=== PATIENT | female | born 1995 | race African-American/Black ===

== ENCOUNTER 2017-11-29 23:54 | Emergency (ER) | payer MEDICAID ==
--- NOTE | 2017-11-30 00:09 | EDPHY ---
H & P Stated Complaint: Tooth pain Time Seen by Provider: 11/30/17 00:09 HPI/ROS: HPI CHIEF COMPLAINT: Right upper dental pain. HISTORY OF PRESENT ILLNESS: This patient very pleasant 22-year-old female, she presents emergency room by private vehicle with right upper posterior molar dental pain and gumline pain. States this started earlier today having pain. No fever. She does wear retainer. She presents emergency room due to pain. Past Medical History: No significant medical history Past Surgical History: No significant surgical history Social History: Denies daily use drugs alcohol tobacco. Family History: Noncontributory ROS REVIEW OF SYSTEMS: A comprehensive 10 point review of systems is otherwise negative aside from elements mentioned in the history of present illness. Exam Constitutional triage nursing summary reviewed, vital signs reviewed, awake/ alert. Eyes normal conjunctivae and sclera, EOMI, PERRLA. HENT oropharynx; this shows some erythema and edema of the right upper gumline next to the molar and premolar. No significant abscess seen on exam. It is mildly tender palpation. This is exactly where her retainer inserts into. moist mucus membranes, no epistaxis, neck supple/ no meningismus, no raccoon eyes. No signs of Anderson's or peritonsillar abscess. Respiratory clear to auscultation bilaterally, normal breath sounds, no respiratory distress, no wheezing. Cardiovascular rate normal, regular rhythm, no murmur, no edema, distal pulses normal. Gastrointestinal soft, non-tender, no rebound, no guarding, normal bowel sounds, no distension, no pulsatile mass. Genitourinary no CVA tenderness. Musculoskeletal no midline vertebral tenderness, full range of motion, no calf swelling, no tenderness of extremities, no meningismus, good pulses, neurovascularly intact. Skin pink, warm, & dry, no rash, skin atraumatic. Neurologic awake, alert and oriented x 3, AAOx3, moves all 4 extremities equally, motor intact, sensory intact, CN II-XII intact, normal cerebellar, normal vision, normal speech. Psychiatric normal mood/affect. Heme/Lymph/Immune no lymphadenopathy. Differential Diagnosis: Includes but is not limited to in a particular order dental infection, gumline abscess, contact irritation from retainer. Infection of the roof of the mouth. Gingivitis, pulpitis, Anderson's. Medical Decision Making: Plan for this patient will placed on amoxicillin, recommend close follow-up with dentistry. Ibuprofen for pain control. Return precautions discussed with her mother at bedside. She can return to the ER if she has worsening swelling, pain or fever. Do not appreciate anything that can be lanced or opened up this time. Source: Patient - Personal History LMP (Females 10-55): 15-21 Days Ago Current Tetanus/Diphtheria Vaccine: No Current Tetanus Diphtheria and Acellular Pertussis (TDAP): No - Medical/Surgical History Hx Asthma: No Hx Chronic Respiratory Disease: No Hx Diabetes: No Hx Cardiac Disease: No Hx Renal Disease: No Hx Cirrhosis: No Hx Alcoholism: No Hx HIV/AIDS: No Hx Splenectomy or Spleen Trauma: No Other PMH: Denies - Social History Smoking Status: Never smoked Constitutional: Initial Vital Signs Temperature (C) 36.9 C 11/29/17 23:58 Heart Rate 118 H 11/29/17 23:58 Respiratory Rate 16 11/29/17 23:58 Blood Pressure 130/71 H 11/29/17 23:58 O2 Sat (%) 95 11/29/17 23:58 O2 Delivery Mode Room Air Allergies/Adverse Reactions: No Known Allergies Allergy (Unverified 11/30/17 00:01) Home Medications: Medication Instructions Recorded Amoxicillin Trihydrate 500 mg PO TID 7 Days cap 11/30/17 [Amoxicillin] Ibuprofen [Motrin (*)] 800 mg PO Q6-8PRN #10 tab 11/30/17 Departure - Departure Disposition: Home, Routine, Self-Care Clinical Impression: Pain, dental Condition: Good Instructions: Toothache (ED) Additional Instructions: 1. Recommend antibiotics as prescribed. 2. Anti-inflammatory pain medicine as prescribed. 3. Return emergency room if there is worsening pain questions or concerns. Referrals: Patient,NotPresent [Unknown] - As per Instructions [facility] [Outside] - As per Instructions [facility] [Outside] - As per Instructions Prescriptions: Amoxicillin Trihydrate [Amoxicillin] 500 mg PO TID 7 Days cap Ibuprofen [Motrin (*)] 800 mg PO Q6-8PRN #10 tab
[2017-11-30 00:32] VITALS: BP 109/73
== END 2017-11-30 00:32 | disposition home or self-care (01) ==
DX: K08.89 Other specified disorders of teeth and supporting structures (principal)

== ENCOUNTER 2017-12-21 04:37 | Emergency (ER) | payer MEDICAID ==
[2017-12-21 04:41] VITALS: BP 110/77
[2017-12-21] MEDS ORDERED: HYDROGEN PEROXIDE 236 ML BOTTLE TP ONE (04:45)
[2017-12-21] MEDS ORDERED: HYDROGEN PEROXIDE 473 ML BOTTLE TP ONE (04:54)
--- NOTE | 2017-12-21 06:24 | EDPHY ---
H & P Stated Complaint: "Bug in my R ear", "i grabbed a piece of it out think theres more in there" Time Seen by Provider: 12/21/17 06:14 HPI/ROS: HPI The patient presents with foreign body sensation of right ear which has been present for the last several hours. She awoke and heard a bug buzzing around her ear. She then felt that the bug went into her ear. She was able to remove a portion of the bug but then felt that the remainder of it was inside of her year. She does not have any changes in her hearing, ear pain currently.. REVIEW OF SYSTEMS Constitutional: No fever, no chills. Eyes: No discharge. ENT: No sore throat. Skin: No rashes. Neurological: No headache. PMHx: Healthy, recently seen for a tooth infection Soc Hx: Here with her mother PHYSICAL General Appearance: Alert, no distress Eyes: Pupils equal and round no pallor or injection ENT, Mouth: Right ear canal is unremarkable, no foreign body, tympanic membrane appears normal, Mucous membranes moist Respiratory: Breathing comfortably Neurological: A&O, moves all extremities Skin: Warm and dry, no rashes Musculoskeletal: Neck is supple non tender Extremities: symmetrical, full range of motion Psychiatric: Patient is oriented X 3, there is no agitation Source: Patient Exam Limitations: No limitations - Personal History LMP (Females 10-55): 1-7 Days Ago Current Tetanus Diphtheria and Acellular Pertussis (TDAP): Yes - Medical/Surgical History Hx Asthma: No Hx Chronic Respiratory Disease: No Hx Diabetes: No Hx Cardiac Disease: No Hx Renal Disease: No Hx Cirrhosis: No Hx Alcoholism: No Hx HIV/AIDS: No Hx Splenectomy or Spleen Trauma: No Other PMH: Denies - Social History Smoking Status: Never smoked Constitutional: Initial Vital Signs Temperature (C) 36.7 C 12/21/17 04:39 Heart Rate 87 12/21/17 04:39 Respiratory Rate 20 12/21/17 04:39 Blood Pressure 110/77 12/21/17 04:39 O2 Sat (%) 95 12/21/17 04:39 O2 Delivery Mode Room Air Allergies/Adverse Reactions: No Known Allergies Allergy (Unverified 12/21/17 04:38) Home Medications: Medication Instructions Recorded Amoxicillin Trihydrate 500 mg PO TID 7 Days cap 11/30/17 [Amoxicillin] Ibuprofen [Motrin (*)] 800 mg PO Q6-8PRN #10 tab 11/30/17 Medical Decision Making Differential Diagnosis: 22-year-old female with concern of foreign body in right ear canal. Ear was irrigated prior to my assessment and currently there is no sign of foreign body , TM appears intact and normal. Plan for discharge to home. Differential diagnosis includes ear foreign body, TM perforation, otitis media. - Data Points Medications Given: Discontinued Medications Hydrogen Peroxide (Hydrogen Peroxide) 1 mirian TP EDNOW ONE Stop: 12/21/17 04:55 Last Admin: 12/21/17 04:55 Dose: 1 dose Departure - Departure Instructions: Ear Foreign Body (ED) Referrals: NONE *PRIMARY CARE P,. [Primary Care Provider] - As per Instructions
== END 2017-12-21 06:23 | disposition home or self-care (01) ==
DX: H92.01 Otalgia, right ear (principal)

== ENCOUNTER 2018-04-17 13:26 | Inpatient (IN) | payer MEDICAID, OTHER ==
[2018-04-17] MEDS ORDERED: HALOPERIDOL LACT 5 MG/ML INJ IM ONE ×2 (13:56→14:36)
--- NOTE | 2018-04-17 13:56 | EDPHY ---
H & P Stated Complaint: Pt without sleep x 10 days, confused and flighty - Personal History Current Tetanus/Diphtheria Vaccine: Yes - Medical/Surgical History Hx Asthma: No Hx Chronic Respiratory Disease: No Hx Diabetes: No Hx Cardiac Disease: No Hx Renal Disease: No Hx Cirrhosis: No Hx Alcoholism: No Hx HIV/AIDS: No Hx Splenectomy or Spleen Trauma: No Other PMH: Denies - Social History Smoking Status: Never smoked <Crispin Barrios - Last Filed: 04/17/18 16:34> <Ken Serrato E - Last Filed: 04/18/18 06:34> <Naveen Leonard A - Last Filed: 04/18/18 09:06> <Naseem Wilkerson S - Last Filed: 04/18/18 18:29> <Ivonne Russell S - Last Filed: 04/18/18 19:40> Time Seen by Provider: 04/17/18 13:44 HPI/ROS: CHIEF COMPLAINT: "They're after me" HISTORY OF PRESENT ILLNESS: 22-year-old female arrives with her mother. Patient presents with an "Aftercare Plan" from "[facility]" in [place] (phone [phone]) where she was admitted and discharged a few days ago diagnosed with unspecified schizophrenia spectrum and other psychotic disorder. The patient has been acting erratically, is not endorsing suicidal or homicidal ideation per mother. Patient has not slept in 10 days per patient and mother . Patient states that people are following her and "hunting her". Denies suicidal or homicidal ideation . Denies hallucination. REVIEW OF SYSTEMS: 10 systems reviewed and negative with the exception of the elements mentioned in the history of present illness PAST MEDICAL & SURGICAL HISTORY: Recent diagnosis of unspecified schizophrenia spectrum and other psychotic disorder SOCIAL HISTORY: Denies alcohol or drug use PHYSICAL EXAM (Prior to examination, patient consented to physical exam, hands were washed and my usual and customary physical exam procedures followed) 1) GENERAL: Well-developed, well-nourished, hyper alert, appears to be responding to internal stimuli. 2) HEAD: Normocephalic, atraumatic 3) HEENT: Pupils equal, round, reactive to light bilaterally. Sclera anicteric. 4) NECK: Full range of motion, no meningeal signs. 5) LUNGS: Clear auscultation bilaterally, no wheezes, no rhonchi, no retractions. 6) HEART: Regular rate and rhythm, no murmur, no heave, no gallop. 7) ABDOMEN: No guarding, no rebound, no focal tenderness, negative McBurney's, negative Montoya's, negative Rovsing's, negative peritoneal sign, 8) MUSCULOSKELETAL: Moving all extremities, no focal areas of tenderness, no obvious trauma. No peripheral edema or discoloration. 9) BACK: No CVA tenderness, no midline vertebral tenderness, no fluctuance, no step-off, no obvious trauma, no visual or palpable abnormality. 10) SKIN: No rash, no petechiae. 11) Psychiatric: Patient is oriented X 3, initially calm, appears to be responding to internal stimuli, hyper alert, keeps looking around the room as if she is visualizing someone or something DIFFERENTIAL DIAGNOSIS: In no particular order include but limited to psychosis , beatriz, suicidal ideation, homicidal ideation (Crispin Barrios) Constitutional: Initial Vital Signs Temperature (C) 36.6 C 04/17/18 13:37 Heart Rate 118 H 04/17/18 13:37 Respiratory Rate 22 H 04/17/18 13:37 Blood Pressure 138/81 H 04/17/18 13:37 O2 Sat (%) 95 04/17/18 13:37 O2 Delivery Mode Room Air Allergies/Adverse Reactions: No Known Allergies Allergy (Verified 04/18/18 17:55) Home Medications: Medication Instructions Recorded NK [No Known Home Meds] 04/18/18 Medical Decision Making <Crispin Barrios - Last Filed: 04/17/18 16:34> <Ken Serrato E - Last Filed: 04/18/18 06:34> <Naveen Leonard A - Last Filed: 04/18/18 09:06> <Naseem Wilkerson S - Last Filed: 04/18/18 18:29> <Ivonne Russell S - Last Filed: 04/18/18 19:40> ED Course/Re-evaluation: 1:50 p.m.: Patient evaluated by myself, she appears to be responding to internal stimuli, paranoid. Patient calm and cooperative at this time agrees to oral medication. Patient was placed on a medical incapacity hold by Dr Néstor Retana as she was threatening to walk out of the waiting room. She agrees at this time to laboratory studies and to change into a gown. 1:55 p.m.: Patient agitated, taking off her clothing, being uncooperative, yelling. Will no longer be able to administer oral medication, will administer intramuscular Haldol. 4:30 p.m.: Serial exams have been performed by myself. She is more calm. 5:00 p.m.: Care the patient turned over to Dr. Naseem Wilkerson at this time awaiting mental health evaluation (Crispin Barrios) I assumed care of this patient at 2:00 p.m.. She presents with acute psychosis. Mental health evaluation pending. 4 p.m.-patient has been seen by mental health and felt appropriate for inpatient treatment of psychosis. EMTALA signed. Accepted to [address] [place] [address]. 6pm: ED RN informed me about pt's ongoing tachycardia. VS reviewed, HR 100-120 throughout her ED stay. Pt calm and cooperative. CV: Regular tachycardia. The patient had an EKG previously today and revealed sinus tachycardia. I reviewed the patient's labs. I will add a TSH to her labs. (Ivonne Russell) Other Provider: 6:30 p.m. care transferred to Dr. Naveen Leonard. Patient is awaiting psychiatric placement. (Ken Serrato) 0630: I assumed care of this patient at shift change from Dr. Serrato. 0845: The patient is tachycardic and normotensive. EKG ordered. 0857: The 12 lead EKG was interpreted by myself as sinus tachycardia with a rate of 118. See hard copy and/or "tracemaster" electronic copy for interpretation. Her tachycardia is most likely secondary to the Haldol. She is eating and drinking well and does not appear systemically ill. (Naveen Leonard) Care assumed from Dr. Retana for this psychotic patient with recent diagnosis of schizophrenia, plan for psychiatric evaluation. PHYSICIAN DOCUMENTATION: The patient was evaluated and managed by the Physician Director Database and myself. I have reviewed the chart and agree with the findings and plan of care as documented. In addition, I examined the patient myself at 1510. History confirmed as the patient currently does not have any medical complaints. Physical findings as follows: Ambulatory, not ataxic. Keeps trying to wander into the hallway but is redirectable. 2300: Signed out to Dr. Serrato with plan for psychiatric admission. I am the secondary supervising physician. (Naseem Wilkerson) - Data Points Laboratory Results: Laboratory Results 04/17/18 15:50 04/17/18 15:50 04/18/18 04/17/18 09:00 15:50 TSH 1.440 uIU/mL uIU/mL (0.465-4.680) Urine Opiates Screen NEGATIVE (NEGATIVE) Urine Barbiturates NEGATIVE (NEGATIVE) Ur Phencyclidine Scrn NEGATIVE (NEGATIVE) Ur Amphetamine Screen NEGATIVE (NEGATIVE) U Benzodiazepines Scrn NEGATIVE (NEGATIVE) Urine Cocaine Screen NEGATIVE (NEGATIVE) U Marijuana (THC) Screen NEGATIVE (NEGATIVE) Medications Given: Discontinued Medications Haloperidol Lactate (Haldol Injection) 5 mg IM EDNOW ONE Stop: 04/17/18 13:57 Last Admin: 04/17/18 14:05 Dose: 5 mg Haloperidol Lactate (Haldol Injection) 5 mg IM EDNOW ONE Stop: 04/17/18 14:37 Last Admin: 04/17/18 14:43 Dose: 5 mg Lorazepam (Ativan Injection) 2 mg IM EDNOW ONE Stop: 04/17/18 14:37 Last Admin: 04/17/18 14:44 Dose: 2 mg Departure <Crispin Barrios - Last Filed: 04/17/18 16:34> <Ken Serrato E - Last Filed: 04/18/18 06:34> <Naveen Leonard - Last Filed: 04/18/18 09:06> <Naseem Wilkerson S - Last Filed: 04/18/18 18:29> <Ivonne Russell S - Last Filed: 04/18/18 19:40> - Departure Disposition: [facility] Clinical Impression: Acute psychosis, Beatriz Condition: Good Report Scribed for: Naveen Leonard Report Scribed by: Lindsey Chand Date of Report: 04/18/18 Time of Report: 09:07 <Naveen Leonard - Last Filed: 04/18/18 09:06>
[2018-04-17] MEDS ORDERED: LORazepam 2 MG/ML INJ IM ONE (14:36)
[2018-04-17] MEDS ORDERED: LORazepam 2 MG/ML INJ ONE (14:37)
[2018-04-17] MEDS ORDERED: HALOPERIDOL LACT 5 MG/ML INJ ONE (14:37)
[2018-04-17 16:12] LABS: PLATELET COUNT 224 10^3/uL (150-400)
--- NOTE | 2018-04-18 09:04 | CPEKG ---
Test Reason : OPEN Blood Pressure : / mmHG Vent. Rate : 118 BPM Atrial Rate : 116 BPM P-R Int : 141 ms QRS Dur : 064 ms QT Int : 302 ms P-R-T Axes : 084 080 061 degrees QTc Int : 424 ms Sinus tachycardia Confirmed by Naveen Leonard ([id number]) on 04/18/2018 9:04:25 AM Referred By: Confirmed By:Naveen Leonard
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
--- NOTE | 2018-04-18 17:55 | ASMTTCLDSP ---
TLC Discharge Disposition Disposition: Answers: Admit Disposition Notes: Notes: In consultation with [facility] ED physician, Naveen Leonard MD and on-call psychiatrist, Darvin Shah MD, both concurred that pt appears to meet 27-65 criteria requiring psychiatric hospitalization as pt appears to be a gravely disabled due to a mental illness condition Was patient given the Answers: Yes Inpatient Behavioral Health Prohibited Belongings List while in the ED? Type of Hold: Answers: M1/72-hour Hold Hold initiated by: Answers: ED Physician Date Signed: 04/18/2018 05:55 PM Electronically Signed By:Erasmo Lawson
[2018-04-18] MEDS ORDERED: MAG HYDROX/AL HYDROX/SIMETH 30 ML UDCUP PO PRN (20:39)
[2018-04-18] MEDS ORDERED: ACETAMINOPHEN 325 MG TAB PO PRN (20:39)
[2018-04-18] MEDS ORDERED: NICOTINE POLACRILEX 2 MG GUM B PRN (20:39)
[2018-04-18] MEDS ORDERED: LORazepam 0.5 MG TAB PO PRN (20:39)
[2018-04-18] MEDS ORDERED: OLANZapine DISINTEGR 10 MG TAB PO PRN (20:39)
[2018-04-18] MEDS ORDERED: MAGNESIUM HYDROXIDE 30 ML UDCUP PO PRN (20:39)
[2018-04-18] MEDS ORDERED: MELATONIN 3 MG TAB PO PRN (20:40)
[2018-04-18] MEDS: OLANZapine DISINTEGR 5 MG TAB PO SCH (21:07)
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
--- NOTE | 2018-04-19 09:27 | PDMN ---
Medical Necessity Medical necessity: [id number] Schizophrenia Spectrum Disorders, Adult: Inpatient Care, 22 yo w/ unspecified schizophrenia spectrum and other psychotic d/o, gravely disabled, M1 hold
--- NOTE | 2018-04-19 14:45 | ASMTCMCOM ---
CM Note CM Note Notes: Pt. and CC completed MTP and placed in chart. Pt. stated she might have legal issues, but is unsure. Pt. stated she last used alcohol "been a minute" adding she drinks "not that often". Pt. stated she smoked THC "while ago" adding a few weeks ago. Pt. denied SI, HI, AVH and paranoia. Pt. presents as semi alert, disorganized, poor eye contact, and passive when communicating. Staff report pt. sleeping 6 hours and being medication compliant. Date Signed: 04/19/2018 02:45 PM Electronically Signed By:Keyanna Hatfield
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
--- NOTE | 2018-04-19 18:22 | PDGENHP ---
History and Physical - Chief Complaint medical evaluation - History of Present Illness Admitted to inpatient psychiatry for evaluation of psychosis. Denies any recent fever, vomiting, diarrhea, headache, URI symptoms. Currently denies STEPHENS/ cough/congestion/sore throat/abd pain/n/v/d. LMP last week, says a normal cycle for her. Denies OTC use. Denies using control currently. Denies having a local PCP. History Information - Allergies/Home Medication List Allergies/Adverse Reactions: No Known Allergies Allergy (Verified 04/18/18 17:55) Home Medications: NK [No Known Home Meds] 04/18/18 [Last Taken Unknown] I have personally reviewed and updated: medical history, social history, surgical history - Past Medical History Additional medical history: Denies history of DM/HTN/asthma. - Surgical History Additional surgical history: Denies previous surgeries - Social History Smoking Status: Never smoked Alcohol Use: Occasionally Drug Use: Marijuana Review of Systems Review of Systems: see HPI Physical Exam Physical Exam: Temp Pulse Resp BP Pulse Ox 97.2 F 115 H 16 134/70 H 97 04/19/18 06:00 04/19/18 06:00 04/19/18 06:00 04/19/18 06:00 04/19/18 06:00 Constitutional: appears nourished, not in pain Eyes: PERRL, anicteric sclera Ears, Nose, Mouth, Throat: moist mucous membranes, hearing normal Cardiovascular: regular rate and rhythym, no murmur, rub, or gallop Respiratory: no respiratory distress, no rales or rhonchi, clear to auscultation , other (she is breathing noisily, but sounds in upper airway/not in lung matias ) Gastrointestinal: normoactive bowel sounds, soft, non-tender abdomen Skin: warm Musculoskeletal: other (JUNG, nl gait) Psychiatric: anxious, agitated Lymph, Heme, Immunologic: no cervical LAD Lab Data & Imaging Review 04/17/18 15:50 04/17/18 15:50 WBC 11.08 10^3/uL (3.80-9.50) H 04/17/18 15:50 RBC 4.75 10^6/uL (4.18-5.33) 04/17/18 15:50 Hgb 12.9 g/dL (12.6-16.3) 04/17/18 15:50 Hct 38.8 % (38.0-47.0) 04/17/18 15:50 MCV 81.7 fL (81.5-99.8) 04/17/18 15:50 MCH 27.2 pg (27.9-34.1) L 04/17/18 15:50 MCHC 33.2 g/dL (32.4-36.7) 04/17/18 15:50 RDW 13.2 % (11.5-15.2) 04/17/18 15:50 Plt Count 224 10^3/uL (150-400) 04/17/18 15:50 MPV 11.3 fL (8.7-11.7) 04/17/18 15:50 Neut % (Auto) 77.7 % (39.3-74.2) H 04/17/18 15:50 Lymph % (Auto) 10.6 % (15.0-45.0) L 04/17/18 15:50 King % (Auto) 10.5 % (4.5-13.0) 04/17/18 15:50 Eos % (Auto) 0.3 % (0.6-7.6) L 04/17/18 15:50 Baso % (Auto) 0.4 % (0.3-1.7) 04/17/18 15:50 Nucleat RBC Rel Count 0.0 % (0.0-0.2) 04/17/18 15:50 Absolute Neuts (auto) 8.63 10^3/uL (1.70-6.50) H 04/17/18 15:50 Absolute Lymphs (auto) 1.17 10^3/uL (1.00-3.00) 04/17/18 15:50 Absolute Monos (auto) 1.16 10^3/uL (0.30-0.80) H 04/17/18 15:50 Absolute Eos (auto) 0.03 10^3/uL (0.03-0.40) 04/17/18 15:50 Absolute Basos (auto) 0.04 10^3/uL (0.02-0.10) 04/17/18 15:50 Absolute Nucleated RBC 0.00 10^3/uL (0-0.01) 04/17/18 15:50 Immature Gran % 0.5 % (0.0-1.1) 04/17/18 15:50 Immature Gran # 0.05 10^3/uL (0.00-0.10) 04/17/18 15:50 Sodium 137 mEq/L (135-145) 04/17/18 15:50 Potassium 3.5 mEq/L (3.3-5.0) 04/17/18 15:50 Chloride 105 mEq/L (97-110) 04/17/18 15:50 Carbon Dioxide 20 mEq/l (22-31) L 04/17/18 15:50 Anion Gap 12 mEq/L (6-14) 04/17/18 15:50 BUN 7 mg/dL (7-23) 04/17/18 15:50 Creatinine 0.7 mg/dL (0.6-1.0) 04/17/18 15:50 Estimated GFR > 60 04/17/18 15:50 Glucose 128 mg/dL (70-100) H 04/17/18 15:50 Calcium 9.6 mg/dL (8.5-10.4) 04/17/18 15:50 TSH 1.440 uIU/mL (0.465-4.680) 04/17/18 15:50 Beta HCG, Qual NEGATIVE 04/17/18 15:50 Salicylates < 1.0 mg/dL (2.0-20.0) L 04/17/18 15:50 Urine Opiates Screen NEGATIVE (NEGATIVE) 04/18/18 09:00 Acetaminophen < 10 mcg/mL (10-30) L 04/17/18 15:50 Urine Barbiturates NEGATIVE (NEGATIVE) 04/18/18 09:00 Ur Phencyclidine Scrn NEGATIVE (NEGATIVE) 04/18/18 09:00 Ur Amphetamine Screen NEGATIVE (NEGATIVE) 04/18/18 09:00 U Benzodiazepines Scrn NEGATIVE (NEGATIVE) 04/18/18 09:00 Urine Cocaine Screen NEGATIVE (NEGATIVE) 04/18/18 09:00 U Marijuana (THC) Screen NEGATIVE (NEGATIVE) 04/18/18 09:00 Ethyl Alcohol < 10 mg/dL (0-10) 04/17/18 15:50 Assessment & Plan Assessment: Acute psychosis (Acute) Gwendolyn (Acute) -per behavioral health team Thank you for asking the hospital service to participate in her care. Please notify the hospital service if medical concerns arise during hospitalization.
[2018-04-19] MEDS: OLANZapine DISINTEGR 5 MG TAB PO SCH (21:19)
--- NOTE | 2018-04-20 08:32 | SOAPPROG ---
SOAP Progress Note Assessment/Plan: Assessment: Bipolar I Disorder, Severe, With Mood Congruent Psychotic Features. No improvement noted. (see subjective/objective note). Patient is not safe to discharge at this time as patient continues to exhibit signs of gwendolyn and psychosis, and express gwendolyn symptoms. Patient requires continued inpatient care because of current acute psychosis and gwendolyn, and requires inpatient level of care to stabilize in order to no longer be gravely disabled due to mental illness. Patient could benefit from continued inpatient hospitalization for crisis stabilization, safety, and medication evaluation. Plan: 1. Psychotropic medications: Patient refuses medications. 2. Review with patient informed consent and recommendations for psychotropic medication treatment listed below 3. Labs: no additional labs at this time. 4. Therapy: continue milieu and group therapy 5. Further investigation including gathering information from patients relatives and review of past case records to inform treatment plan. 6. Safety/Wellness plan and follow-up outpatient appointments to be established prior to discharge. Next steps are for patient to meet with children's zoo caretaker to plan a safe discharge plan and establish outpatient services for ongoing treatment. 7. Confer with inpatient treatment team regarding treatment plan. 8. Psychosocial stressors addressed through case management. 9. Legal status: M1; consider STC due to grave disability 10. Consider discharge next week if patient is in stable condition, safe, and has a safe discharge plan. PSYCHOTROPIC MEDICATION TREATMENT INFORMED CONSENT and RECOMMENDATIONS: Review nature of condition, diagnosis, and prognosis. Review nature and purpose of psychotropic medication treatment. Review type of psychotropic medications being ordered. Review risk and benefits of psychotropic medication treatment. Review probable length of time patient will need to take medications. Review risk and benefits of not undergoing psychotropic medication treatment. Review alternative treatments to psychotropic medications. Review psychotropic medications contraindications, drug-drug interactions, side effects, and importance of reporting any side effects to a psychiatric provider or nurse during inpatient hospitalization, and upon discharge to patients psychiatric outpatient provider, primary care provider, or other health care transitions nurse. Review importance of asking a nurse, psychiatric provider, or primary care provider any questions or problems concerning the psychotropic medications. Verify patient understands the information that has been provided, and understands, accepts, and agrees to psychotropic medications. Review patients safety plan and importance of patient to report to staff while hospitalized if patient is ever a danger to self/others, or unable to care for self, and upon discharge, the importance for patient to contact [facility] or [facility], or go to the nearest emergency room, if patient is ever a danger to self/others, or unable to care for self. Recommend that upon discharge patient establish medication management treatment with a psychiatric provider, establishes routine therapy appointments, and follow-up with primary care provider. Verify patient understands and agrees to these recommendations. 04/20/18 08:32 Subjective: Following up with patient for evaluation of psychosis and safety. Regarding why patient is hospitalized patient reports, "I am here because...I am here because........" Patient expresses the following psychiatric symptoms: distracted, unable to focus on one thing. Patient reports not taking medications as prescribed, and states, "I don't need them." Patient does not report undesirable side effects from the medications, and agrees to continue current medications. Patient describes getting no sleep last night, and states she feels "just fine." Objective: Vital Signs Temp Pulse Resp BP Pulse Ox 36.4 C 105 H 16 132/63 H 97 04/20/18 06:00 04/20/18 06:00 04/20/18 06:00 04/20/18 06:00 04/20/18 06:00 NURSING REPORT: Consulted with nursing for update on patients progress in treatment. Nurses report patient is not engaged in treatment, is not attending groups, slept 0 hours, expresses the following psychiatric symptoms: distracted , unable to focus; exhibits the following psychiatric symptoms: hyperactive, thought blocking, attending to internal stimuli, pacing halls; is eating all meals with prompting and direction from staff, is not agreeable to medications. MD REPORT FROM WEEKEND: admitted due to not sleeping, paranoid delusions, attempting to jump out of a moving car. MSE: The patient is a well-nourished female looking stated chronological age. Attire is appropriate and dress is hospital garb. Grooming status is appropriate. Ambulation is independent. Gait is normal and coordinated. Posture is normal and relaxed. Eye contact is inappropriate and staring. Motor activity is appropriate with purposeful, organized, coordinated movements ; with no involuntary movements. Attitude is uncooperative. Patient distracted and does not relate well to this interviewer. Language production is unspontaneous. Rate is severely hesitant. Latency of response is severely prolonged with sad tone, and low volume, and amount is monosyllabic to sparse. Articulation is clear. Patient reports mood as okay with incongruent and flat, constricted affect. Patients thought process is non-linear and illogical, disorganized, blocked. Patient does not report suicidal/homicidal thoughts, ideas, or plans. Patient denies auditory hallucinations, denies visual hallucinations. Patient denies delusions. Patient appears to be attending to internal stimuli during interview. Patients attention and concentration are poor. Patient is oriented to person, place. Patients insight and judgement are poor. - Time Spent With Patient Time Spent With Patient: 15 minutes, met with patient individually. - Pending Discharge Pending Discharge Within 24 Hours: No Pending Discharge Within 48 Hours: No ICD10 Worksheet Patient Problems: Problems Problem Status Onset Acute psychosis Acute Gwendolyn Acute
[2018-04-20] MEDS: OLANZapine DISINTEGR 5 MG TAB PO SCH (23:00)
--- NOTE | 2018-04-21 06:39 | SOAPPROG ---
SOAP Progress Note Assessment/Plan: Assessment: Bipolar I Disorder, Severe, With Mood Congruent Psychotic Features. No improvement noted. (see subjective/objective note). Patient is not safe to discharge at this time as patient continues to exhibit signs of gwendolyn and psychosis, and express gwendolyn and psychosis symptoms. Patient requires continued inpatient care because of current acute psychosis and gwendolyn, and requires inpatient level of care to stabilize in order to no longer be gravely disabled due to mental illness. Patient could benefit from continued inpatient hospitalization for crisis stabilization, safety, and medication evaluation. Plan: 1. Psychotropic medications: Patient refuses medications. 2. Review with patient informed consent and recommendations for psychotropic medication treatment listed below 3. Labs: no additional labs at this time. 4. Therapy: continue milieu and group therapy 5. Further investigation including gathering information from patients relatives and review of past case records to inform treatment plan. 6. Safety/Wellness plan and follow-up outpatient appointments to be established prior to discharge. Next steps are for patient to meet with acute care physical therapist to plan a safe discharge plan and establish outpatient services for ongoing treatment. 7. Confer with inpatient treatment team regarding treatment plan. 8. Psychosocial stressors addressed through case management. 9. Legal status: [facility] due to grave disability 10. Consider discharge next week if patient is in stable condition, safe, and has a safe discharge plan. PSYCHOTROPIC MEDICATION TREATMENT INFORMED CONSENT and RECOMMENDATIONS: Review nature of condition, diagnosis, and prognosis. Review nature and purpose of psychotropic medication treatment. Review type of psychotropic medications being ordered. Review risk and benefits of psychotropic medication treatment. Review probable length of time patient will need to take medications. Review risk and benefits of not undergoing psychotropic medication treatment. Review alternative treatments to psychotropic medications. Review psychotropic medications contraindications, drug-drug interactions, side effects, and importance of reporting any side effects to a psychiatric provider or nurse during inpatient hospitalization, and upon discharge to patients psychiatric outpatient provider, primary care provider, or other health career development director. Review importance of asking a nurse, psychiatric provider, or primary care provider any questions or problems concerning the psychotropic medications. Verify patient understands the information that has been provided, and understands, accepts, and agrees to psychotropic medications. Review patients safety plan and importance of patient to report to staff while hospitalized if patient is ever a danger to self/others, or unable to care for self, and upon discharge, the importance for patient to contact [facility] or [facility], or go to the nearest emergency room, if patient is ever a danger to self/others, or unable to care for self. Recommend that upon discharge patient establish medication management treatment with a psychiatric provider, establishes routine therapy appointments, and follow-up with primary care provider. Verify patient understands and agrees to these recommendations. 04/21/18 06:42 Subjective: Following up with patient for evaluation of psychosis and safety. Regarding why patient is hospitalized patient reports, "Umm, 'cause....I am here because..." Patient expresses the following psychiatric symptoms: distracted, "unable to think of the right words to say." Patient reports not taking medications as prescribed, and states, "I am fine, I do not need them." Educate patient on importance of taking medications as prescribed and patient continues to refuse. Patient describes getting no sleep last night, and reports feeling rested this morning. Patient reports, "I was up and down all night, could not go to sleep." Objective: Vital Signs Temp Pulse Resp BP Pulse Ox 36.4 C 105 H 16 132/63 H 97 04/20/18 06:00 04/20/18 06:00 04/20/18 06:00 04/20/18 06:00 04/20/18 06:00 NURSING REPORT: Consulted with nursing for update on patients progress in treatment. Nurses report patient is not engaged in treatment, is not attending groups, slept 0 hours, was up all night pacing the halls; expresses the following psychiatric symptoms: distracted, unable to focus; exhibits the following psychiatric symptoms: distractible, hyperactive, thought blocking, attending to internal stimuli; is eating all meals with prompting and direction from staff, is not agreeable to medications, and RN reports patient refused all KACIE and PRN medications. MSE: The patient is a well-nourished female looking stated chronological age. Attire is appropriate and dress is hospital garb. Grooming status is appropriate. Ambulation is independent. Gait is normal and coordinated. Posture is normal and relaxed. Eye contact is inappropriate and staring; blank stare. Motor activity is appropriate with purposeful, organized, coordinated movements; with no involuntary movements. Attitude is uncooperative. Patient distracted and does not relate well to this interviewer. Language production is unspontaneous. Rate is severely hesitant. Latency of response is severely prolonged with sad tone, and low volume, and amount is monosyllabic to sparse. Articulation is clear. Patient unable to complete a full sentence. Patient reports mood as okay with incongruent and flat, constricted affect. Patients thought process is non-linear and illogical, disorganized, blocked. Patient does not report suicidal/homicidal thoughts, ideas, or plans. Patient denies auditory hallucinations, denies visual hallucinations. Patient denies delusions. Patient appears to be attending to internal stimuli during interview. Patients attention and concentration are poor. Patient is oriented to person, place. Patients insight and judgement are poor. - Time Spent With Patient Time Spent With Patient: 15 minutes, met with patient individually. - Pending Discharge Pending Discharge Within 24 Hours: No Pending Discharge Within 48 Hours: No ICD10 Worksheet Patient Problems: Problems Problem Status Onset Acute psychosis Acute Bipolar I disorder with mood-congruent psychotic features Acute Gwendolyn Acute
[2018-04-21] MEDS ORDERED: OLANZapine 5 MG TAB PO PRN (11:26)
--- NOTE | 2018-04-21 15:11 | ASMTCMCOM ---
CM Note CM Note Notes: MOC has been restricted from entering the unit or calling the unit, due to fostering pt's delusional beliefs. spoke about possibly seeking COM for pt. Pt. refused HS medications and slept 1 hour last night. Staff report pt. presenting as disorganized and psychotic. Date Signed: 04/21/2018 03:10 PM Electronically Signed By:Keyanna Hatfield
[2018-04-21] MEDS: OLANZapine DISINTEGR 5 MG TAB PO SCH (23:02)
--- NOTE | 2018-04-22 07:42 | SOAPPROG ---
SOAP Progress Note Assessment/Plan: Assessment: Bipolar I Disorder, Severe, With Mood Congruent Psychotic Features. No improvement noted. (see subjective/objective note). Patient is not safe to discharge at this time as patient continues to exhibit signs of gwendolyn and psychosis, and express gwendolyn and psychosis symptoms. Patient requires continued inpatient care because of current acute psychosis and gwendolyn, and requires inpatient level of care to stabilize in order to no longer be gravely disabled due to mental illness. Patient could benefit from continued inpatient hospitalization for crisis stabilization, safety, and medication evaluation. Plan: 1. Psychotropic medications: Patient refuses medications. 2. Review with patient informed consent and recommendations for psychotropic medication treatment listed below 3. Labs: no additional labs at this time. 4. Therapy: continue milieu and group therapy 5. Further investigation including gathering information from patients relatives and review of past case records to inform treatment plan. 6. Safety/Wellness plan and follow-up outpatient appointments to be established prior to discharge. Next steps are for patient to meet with patient care specialist to plan a safe discharge plan and establish outpatient services for ongoing treatment. 7. Confer with inpatient treatment team regarding treatment plan. 8. Psychosocial stressors addressed through case management. 9. Legal status: [facility] due to grave disability 10. Consider discharge next week if patient is in stable condition, safe, and has a safe discharge plan. 11. Court-ordered medications. PSYCHOTROPIC MEDICATION TREATMENT INFORMED CONSENT and RECOMMENDATIONS: Review nature of condition, diagnosis, and prognosis. Review nature and purpose of psychotropic medication treatment. Review type of psychotropic medications being ordered. Review risk and benefits of psychotropic medication treatment. Review probable length of time patient will need to take medications. Review risk and benefits of not undergoing psychotropic medication treatment. Review alternative treatments to psychotropic medications. Review psychotropic medications contraindications, drug-drug interactions, side effects, and importance of reporting any side effects to a psychiatric provider or nurse during inpatient hospitalization, and upon discharge to patients psychiatric outpatient provider, primary care provider, or other health care technician. Review importance of asking a nurse, psychiatric provider, or primary care provider any questions or problems concerning the psychotropic medications. Verify patient understands the information that has been provided, and understands, accepts, and agrees to psychotropic medications. Review patients safety plan and importance of patient to report to staff while hospitalized if patient is ever a danger to self/others, or unable to care for self, and upon discharge, the importance for patient to contact [facility] or 911, or go to the nearest emergency room, if patient is ever a danger to self/others, or unable to care for self. Recommend that upon discharge patient establish medication management treatment with a psychiatric provider, establishes routine therapy appointments, and follow-up with primary care provider. Verify patient understands and agrees to these recommendations. 04/22/18 07:43 Subjective: Following up with patient for evaluation of psychosis and safety. Regarding why patient is hospitalized patient reports, "Umm...." Patient expresses the following psychiatric symptoms: "not sure." Patient reports not taking medications as prescribed, and states, "No, I do not need them." Patient refuses medications. Patient describes getting "little to no sleep last night" , and reports feeling rested this morning. "Was having a hard time sleeping again last night, a lot of tossing and turning." Objective: Vital Signs Temp Pulse Resp BP Pulse Ox 36.9 C 107 H 16 135/70 H 97 04/21/18 06:00 04/21/18 06:00 04/21/18 06:00 04/21/18 06:00 04/21/18 06:00 NURSING REPORT: Consulted with nursing for update on patients progress in treatment. Nurses report patient is not engaged in treatment, is not attending groups, slept 2 hours, was up most of the night pacing the halls; expresses the following psychiatric symptoms: distracted, unable to focus; exhibits the following psychiatric symptoms: distractible, hyperactive, thought blocking, attending to internal stimuli; is eating all meals with prompting and direction from staff, is not agreeable to medications, and RN reports patient refused all KACIE and PRN medications. TREATMENT PLANNING: treatment team consensus yesterday during treatment team meeting was that patients mother was interfering with and having a negative impact on patients treatment. Patients mother requested to this COMMERCIAL TELLER yesterday during phone call that the patient be treated with alkaline water from [employer] and walnuts because walnuts look like the brain, it is the brain food connection. You should go back to school and learn about that. After she has water and walnuts for 2-3 weeks she will be better without any pharmaceutical medications. MD to write letter for court-ordered medications as patient continues to refuse medications. MSE: The patient is a well-nourished female looking stated chronological age. Attire is appropriate and dress is hospital garb. Grooming status is appropriate. Ambulation is independent. Gait is normal and coordinated. Posture is normal and relaxed. Eye contact is inappropriate and staring; blank stare. Motor activity is appropriate with purposeful, organized, coordinated movements; with no involuntary movements. Attitude is uncooperative. Patient distracted and does not relate well to this interviewer. Language production is unspontaneous. Rate is severely hesitant. Latency of response is severely prolonged with sad tone, and low volume, and amount is monosyllabic to sparse. Articulation is clear. Patient reports mood as okay with incongruent and flat, constricted affect. Patients thought process is non-linear and illogical, disorganized, blocked. Patient does not report suicidal/homicidal thoughts, ideas, or plans. Patient denies auditory hallucinations, denies visual hallucinations. Patient denies delusions. Patient appears to be attending to internal stimuli during interview. Patients attention and concentration are poor. Patient is oriented to person, place. Patients insight and judgement are poor. - Time Spent With Patient Time Spent With Patient: 15 minutes, met with patient individually. - Pending Discharge Pending Discharge Within 24 Hours: No Pending Discharge Within 48 Hours: No ICD10 Worksheet Patient Problems: Problems Problem Status Onset Acute psychosis Acute Gwendolyn Acute Bipolar I disorder with mood-congruent psychotic features Chronic
[2018-04-22] MEDS: OLANZapine DISINTEGR 5 MG TAB PO SCH (21:30)
--- NOTE | 2018-04-23 07:57 | SOAPPROG ---
SOAP Progress Note Assessment/Plan: Assessment: Bipolar I Disorder, Severe, With Mood Congruent Psychotic Features. No improvement noted. (see subjective/objective note). Patient is not safe to discharge at this time as patient continues to exhibit signs of gwendolyn and psychosis, and express gwendolyn and psychosis symptoms. Patient requires continued inpatient care because of current acute psychosis and gwendolyn, and requires inpatient level of care to stabilize in order to no longer be gravely disabled due to mental illness. Patient is unable to communicate her basic needs and is unable to attend to ADLs. Patient could benefit from continued inpatient hospitalization for crisis stabilization, safety, and medication evaluation. Plan: 1. Psychotropic medications: Patient refuses medications; MD submitted letter yesterday for court-ordered medications. 2. Review with patient informed consent and recommendations for psychotropic medication treatment listed below. 3. Labs: no additional labs at this time. 4. Therapy: continue milieu and group therapy. 5. Further investigation including gathering information from patients relatives and review of past case records to inform treatment plan. 6. Safety/Wellness plan and follow-up outpatient appointments to be established prior to discharge. Next steps are for patient to meet with caretaker resort to plan a safe discharge plan and establish outpatient services for ongoing treatment. 7. Confer with inpatient treatment team regarding treatment plan. 8. Psychosocial stressors addressed through case management. 9. Legal status: ST due to grave disability. 10. Consider discharge next week if patient is in stable condition, safe, and has a safe discharge plan. 11. Court-ordered medications letter was submitted yesterday by MD. PSYCHOTROPIC MEDICATION TREATMENT INFORMED CONSENT and RECOMMENDATIONS: Review nature of condition, diagnosis, and prognosis. Review nature and purpose of psychotropic medication treatment. Review type of psychotropic medications being ordered. Review risk and benefits of psychotropic medication treatment. Review probable length of time patient will need to take medications. Review risk and benefits of not undergoing psychotropic medication treatment. Review alternative treatments to psychotropic medications. Review psychotropic medications contraindications, drug-drug interactions, side effects, and importance of reporting any side effects to a psychiatric provider or nurse during inpatient hospitalization, and upon discharge to patients psychiatric outpatient provider, primary care provider, or other health care management specialist. Review importance of asking a nurse, psychiatric provider, or primary care provider any questions or problems concerning the psychotropic medications. Verify patient understands the information that has been provided, and understands, accepts, and agrees to psychotropic medications. Review patients safety plan and importance of patient to report to staff while hospitalized if patient is ever a danger to self/others, or unable to care for self, and upon discharge, the importance for patient to contact [facility] or [facility], or go to the nearest emergency room, if patient is ever a danger to self/others, or unable to care for self. Recommend that upon discharge patient establish medication management treatment with a psychiatric provider, establishes routine therapy appointments, and follow-up with primary care provider. Verify patient understands and agrees to these recommendations. 04/23/18 07:57 Subjective: Following up with patient for evaluation of psychosis and safety. When this VALLEZ FILTER OPERATOR asks patient why she is hospitalized patient does not answer, takes deep breath and stares at this VALLEZ FILTER OPERATOR. Patient expresses the following psychiatric symptoms: " I am doing just fine." Patient reports not taking medications as prescribed. When this VALLEZ FILTER OPERATOR asks patient why she does not answer. Blank stare. Patient refuses medications. Patient describes having a hard time sleeping last night, difficultly falling asleep and staying asleep and reports feeling rested this morning. Objective: Vital Signs Temp Pulse Resp BP Pulse Ox 36.5 C 83 15 119/66 98 04/23/18 06:00 04/23/18 06:00 04/23/18 06:00 04/23/18 06:00 04/23/18 06:00 NURSING REPORT: Consulted with nursing for update on patients progress in treatment. Nurses report patient is not engaged in treatment, is not attending groups, slept 5 hours, was up a few times throughout the night; expresses the following psychiatric symptoms: distracted; exhibits the following psychiatric symptoms: distractible, thought blocking, attending to internal stimuli; is eating all meals with prompting and direction from staff, is not agreeable to medications, and RN reports patient refused all KACIE and PRN medications. MSE: The patient is a well-nourished female looking stated chronological age. Attire is appropriate and dress is hospital garb. Grooming status is appropriate. Ambulation is independent. Gait is normal and coordinated. Posture is normal and relaxed. Eye contact is inappropriate and staring; blank stare. Motor activity is appropriate with purposeful, organized, coordinated movements; with no involuntary movements. Attitude is uncooperative. Patient distracted and does not relate well to this interviewer. Language production is unspontaneous. Rate is severely hesitant. Latency of response is severely prolonged with sad tone, and low volume, and amount is monosyllabic to sparse. Articulation is clear. Patient reports mood as okay with incongruent and flat, constricted affect. Patients thought process is non-linear and illogical, disorganized, blocked. Patient does not report suicidal/homicidal thoughts, ideas, or plans. Patient denies auditory hallucinations, denies visual hallucinations. Patient denies delusions. Patient appears to be attending to internal stimuli during interview. Patients attention and concentration are poor. Patient is oriented to person, place. Patients insight and judgement are poor. - Time Spent With Patient Time Spent With Patient: 15 minutes, met with patient individually. - Pending Discharge Pending Discharge Within 24 Hours: No Pending Discharge Within 48 Hours: No ICD10 Worksheet Patient Problems: Problems Problem Status Onset Acute psychosis Acute Gwendolyn Acute Bipolar I disorder with mood-congruent psychotic features Chronic
[2018-04-23] MEDS: OLANZapine DISINTEGR 5 MG TAB PO SCH (21:04)
--- NOTE | 2018-04-24 07:08 | SOAPPROG ---
SOAP Progress Note Assessment/Plan: Assessment: Bipolar I Disorder, Severe, With Mood Congruent Psychotic Features. No improvement noted. (see subjective/objective note). Patient is not safe to discharge at this time as patient continues to exhibit signs of gwendolyn and psychosis, and express gwendolyn and psychosis symptoms. Patient requires continued inpatient care because of current acute psychosis and gwendolyn, and requires inpatient level of care to stabilize in order to no longer be gravely disabled due to mental illness. Patient is unable to communicate her basic needs and is unable to attend to ADLs. Patient could benefit from continued inpatient hospitalization for crisis stabilization, safety, and medication evaluation. Plan: 1. Psychotropic medications: Patient refuses medications; MD submitted letter yesterday for court-ordered medications. 2. Review with patient informed consent and recommendations for psychotropic medication treatment listed below. 3. Labs: no additional labs at this time. 4. Therapy: continue milieu and group therapy. 5. Further investigation including gathering information from patients relatives and review of past case records to inform treatment plan. 6. Safety/Wellness plan and follow-up outpatient appointments to be established prior to discharge. Next steps are for patient to meet with disabilities caregiver to plan a safe discharge plan and establish outpatient services for ongoing treatment. 7. Confer with inpatient treatment team regarding treatment plan. 8. Psychosocial stressors addressed through case management. 9. Legal status: ST due to grave disability. 10. Consider discharge next week if patient is in stable condition, safe, and has a safe discharge plan. 11. Court-ordered medications letter was submitted Friday by . PSYCHOTROPIC MEDICATION TREATMENT INFORMED CONSENT and RECOMMENDATIONS: Review nature of condition, diagnosis, and prognosis. Review nature and purpose of psychotropic medication treatment. Review type of psychotropic medications being ordered. Review risk and benefits of psychotropic medication treatment. Review probable length of time patient will need to take medications. Review risk and benefits of not undergoing psychotropic medication treatment. Review alternative treatments to psychotropic medications. Review psychotropic medications contraindications, drug-drug interactions, side effects, and importance of reporting any side effects to a psychiatric provider or nurse during inpatient hospitalization, and upon discharge to patients psychiatric outpatient provider, primary care provider, or other health respiratory care instructor. Review importance of asking a nurse, psychiatric provider, or primary care provider any questions or problems concerning the psychotropic medications. Verify patient understands the information that has been provided, and understands, accepts, and agrees to psychotropic medications. Review patients safety plan and importance of patient to report to staff while hospitalized if patient is ever a danger to self/others, or unable to care for self, and upon discharge, the importance for patient to contact [facility] or [facility], or go to the nearest emergency room, if patient is ever a danger to self/others, or unable to care for self. Recommend that upon discharge patient establish medication management treatment with a psychiatric provider, establishes routine therapy appointments, and follow-up with primary care provider. Verify patient understands and agrees to these recommendations. 04/24/18 07:09 Subjective: Following up with patient for evaluation of psychosis and safety. Regarding why patient is hospitalized, patient does not answer. Patient expresses the following psychiatric symptoms: "Ummm..." Patient reports not taking medications as prescribed, patient does not answer when this STAND UP COMEDIAN asks why she is not taking medications as prescribed. Patient does not answer questions and only makes gestures when this STAND UP COMEDIAN asks her questions. Patient continues to refuse all medications. When this STAND UP COMEDIAN asks patient if she slept last night patient shrugs her shoulders. Objective: Vital Signs Temp Pulse Resp BP Pulse Ox 36.5 C 100 14 112/64 93 04/24/18 06:00 04/24/18 06:00 04/24/18 06:00 04/24/18 06:00 04/24/18 06:00 NURSING REPORT: Consulted with nursing for update on patients progress in treatment. Nurses report patient is not engaged in treatment, is not attending groups, slept 3 hours, was up a few times throughout the night; patient observed pacing and at times running up and down the halls; bizarre behavior; expresses the following psychiatric symptoms: not able to think of the right words to say; exhibits the following psychiatric symptoms: labile, distractible , thought blocking, attending to internal stimuli; is eating all meals with prompting and direction from staff, is not agreeable to medications, and RN reports patient refused all KACIE and PRN medications. MSE: The patient is a well-nourished female looking stated chronological age. Attire is appropriate and dress is hospital garb. Grooming status is appropriate. Ambulation is independent. Gait is normal and coordinated. Posture is normal and relaxed. Eye contact is inappropriate and staring; blank stare. Motor activity is appropriate with purposeful, organized, coordinated movements; with no involuntary movements. Attitude is uncooperative. Patient distracted and does not relate well to this interviewer. Language production is unspontaneous. Rate is severely hesitant. Latency of response is severely prolonged with sad tone, and low volume, and amount is monosyllabic to sparse. Articulation is clear. Patient reports mood as "fine" with incongruent and flat , labile, constricted affect. Patients thought process is non-linear and illogical, disorganized, blocked. Patient does not report suicidal/homicidal thoughts, ideas, or plans. Patient denies auditory hallucinations, denies visual hallucinations. Patient denies delusions. Patient appears to be attending to internal stimuli during interview. Patients attention and concentration are poor. Patient is oriented to person, place. Patients insight and judgement are poor. - Time Spent With Patient Time Spent With Patient: 15 minutes, met with patient individually. - Pending Discharge Pending Discharge Within 24 Hours: No Pending Discharge Within 48 Hours: No ICD10 Worksheet Patient Problems: Problems Problem Status Onset Acute psychosis Acute Gwendolyn Acute Bipolar I disorder with mood-congruent psychotic features Chronic
--- NOTE | 2018-04-24 13:59 | ASMTCMCOM ---
CM Note CM Note Notes: Pt. stated she did not want to meet with CC. Pt. did ask CC if she could call her mother on the patient phone. Staff report pt. sleeping 3 hours and refusing her HS medications. Date Signed: 04/24/2018 01:57 PM Electronically Signed By:Keyanna Hatfield
[2018-04-24] MEDS: LITHIUM CARBONATE ER 300 MG TAB PO ONE ×2 (16:32→16:39)
[2018-04-24] MEDS: LITHIUM CARBONATE ER 300 MG TAB PO SCH (20:28)
[2018-04-24] MEDS: OLANZapine DISINTEGR 5 MG TAB PO SCH (20:28)
[2018-04-25] MEDS: LITHIUM CARBONATE ER 300 MG TAB PO SCH ×5 (08:52→21:48)
--- NOTE | 2018-04-25 11:03 | ASMTCMCOM ---
CM Note CM Note Notes: CC sent over [facility] referral regarding intake appt for later this month. Client is still refusing medications from staff; client mostly sits out on the unit watching tv or laying down in her room. Affect is restricted, mostly silent, while easily redirectable (if needed). Date Signed: 04/25/2018 11:02 AM Electronically Signed By:Douglas Wiley
--- NOTE | 2018-04-25 17:40 | SOAPPROG ---
SOAP Progress Note Assessment/Plan: Assessment: 22 yo with recent onset of psychotic sxs while living in [place]. She was admitted to [facility] after [facility] took her to ED for trying to jump out of moving vehicle. Plan: 04/25/18 17:34 1. Patient is pleasant and calm. However, she has no insight into the nature or severity of her situation. She cannot explain why she is in the hospital. 2. Patient refused lithium this AM after agreeing to take it yesterday when she and her BOC spoke to Dash VALDES. 3. Patient is having trouble sleeping. She has slept an average of 2-4 hrs each night since admission. However, she does not exhibit any other sxs of gwendolyn. She does not have increased goal-directed activity, elevated/elated mood, pressured speech, racing thoughts, grandiose delusions or reckless and impulsive behavior. She is also not depressed. She denies feeling sad, helpless , hopeless, worthless or anxious. She is extremely confused and disorganized. She is internally preoccupied, easily distracted and appears to have thought blocking. These are all consistent with psychotic disorder, but not with bipolar disorder. 4. Recommend SGA's to treat psychosis. This MD does not see indication for mood stabilizer at this time. So far, patient is refusing all psychotropic meds. 5. Dr. Arteaga has submitted letter for court ordered involuntary medications. 6. ST Subjective: Patient is standing at sink looking into mirror and brushing her hair. Patient periodically seems to forget what she is doing and stares at image in mirror or turns and looks out window in her room, and then resumes brushing. Patient is pleasant and calm. However, she has no insight into the nature or severity of her situation. She cannot explain why she is in the hospital. Patient refused lithium this AM after agreeing to take it yesterday when she and her BOC spoke to Dash VALDES. Patient is having trouble sleeping. She has slept an average of 2-4 hrs each night since admission. However, she does not exhibit any other sxs of gwendolyn. She does not have increased goal-directed activity, elevated/elated mood, pressured speech, racing thoughts, grandiose delusions or reckless and impulsive behavior. She is also not depressed. She denies feeling sad, helpless, hopeless, worthless or anxious. She is extremely confused and disorganized. She is internally preoccupied, easily distracted and appears to have thought blocking. These are all consistent with psychotic disorder, but not with bipolar disorder. Objective: Vital Signs Temp Pulse Resp BP Pulse Ox 36.5 C 100 14 112/64 93 04/24/18 06:00 04/24/18 06:00 04/24/18 06:00 04/24/18 06:00 04/24/18 06:00 MSE: Affect: Constricted Mood: "OK" TP: Disorganized, thought blocking TC: Denies any SI/HI, impoverishment Insight/Judgment: Impaired - Time Spent With Patient Time Spent With Patient: 15" - Pending Discharge Pending Discharge Within 24 Hours: No Pending Discharge Within 48 Hours: No ICD10 Worksheet Patient Problems: Problems Problem Status Onset Acute psychosis Acute Gwendolyn Acute Bipolar I disorder with mood-congruent psychotic features Chronic
[2018-04-25] MEDS: OLANZapine DISINTEGR 5 MG TAB PO SCH ×3 (20:55→21:49)
[2018-04-26] MEDS: LITHIUM CARBONATE ER 300 MG TAB PO SCH ×2 (10:50→22:09)
--- NOTE | 2018-04-26 12:34 | ASMTCMCOM ---
CM Note CM Note Notes: The patient reported pain in her forehead; this was reported to the patient's nurse immediately. The patient reported that she was refusing medication because she didn't need it. She stated, "I'm okay." The patient was unable to demonstrate insight into her admission or diagnosis. She reported that she was hospitalized "Because I played around with things I shouldn't have." The patient's responses were delayed and her eye contact was intermittent. She appeared at times to be responding to internal stimuli. Date Signed: 04/26/2018 12:33 PM Electronically Signed By:Sirisha Hyde
--- NOTE | 2018-04-26 17:34 | SOAPPROG ---
SOAP Progress Note Assessment/Plan: Assessment: 22 yo with recent onset of psychotic sxs while living in [place]. She was admitted to [facility] after [facility] took her to ED for trying to jump out of moving vehicle. Plan: 04/25/18 17:34 1. Patient is pleasant and calm. However, she has no insight into the nature or severity of her situation. She cannot explain why she is in the hospital. 2. Patient refused lithium this AM after agreeing to take it yesterday when she and her [facility] Dash Agarwal. 3. Patient is having trouble sleeping. She has slept an average of 2-4 hrs each night since admission. However, she does not exhibit any other sxs of gwendolyn. She does not have increased goal-directed activity, elevated/elated mood, pressured speech, racing thoughts, grandiose delusions or reckless and impulsive behavior. She is also not depressed. She denies feeling sad, helpless , hopeless, worthless or anxious. She is extremely confused and disorganized. She is internally preoccupied, easily distracted and appears to have thought blocking. These are all consistent with psychotic disorder, but not with bipolar disorder. 4. Recommend SGA's to treat psychosis. This MD does not see indication for mood stabilizer at this time. So far, patient is refusing all psychotropic meds. 5. Dr. Arteaga has submitted letter for court ordered involuntary medications. 6. [facility] PLAN: 04/26/18 17:30 1. Patient continues to refuse all psych meds. 2. Patient is still confused and not fully oriented. 3. There are still no s/s of gwendolyn. 4. Awaiting hearing for COM. 5. ST Subjective: Patient has been wearing same clothes all w/e. She is appropriately groomed and dressed. She refused Olanzapine last night and Idalou this AM. MD encouraged patient to take PRN dose of Olanzapine this afternoon, but she refused. When staff asked if she wanted her scheduled meds, she said, "No, I'm OK." She has been in touch with her BOC and AOC by phone. She did ask, "How do I get out of here?" MD tried to explain that her treatment team wants her to take medications to treat a mental illness, but patient doesn't agree there is anything wrong. Objective: Vital Signs Temp Pulse Resp BP Pulse Ox 36.6 C 83 16 120/67 97 04/26/18 06:00 04/26/18 06:00 04/26/18 06:00 04/26/18 06:00 04/26/18 06:00 MSE: Affect: Cheerful Mood: "I'm OK" TP: Disorganized, confused, illogical TC : Denies any SI/HI, delusions Perception: Denies AH/VH Insight/Judgment: Poor - Time Spent With Patient Time Spent With Patient: 15" - Pending Discharge Pending Discharge Within 24 Hours: No Pending Discharge Within 48 Hours: No ICD10 Worksheet Patient Problems: Problems Problem Status Onset Acute psychosis Acute Gwendolyn Acute Bipolar I disorder with mood-congruent psychotic features Chronic
[2018-04-26] MEDS: OLANZapine DISINTEGR 5 MG TAB PO SCH (22:10)
--- NOTE | 2018-04-27 07:04 | SOAPPROG ---
SOAP Progress Note Assessment/Plan: Assessment: Bipolar I Disorder, Severe, With Mood Congruent Psychotic Features. No improvement noted. (see subjective/objective note). Patient is not safe to discharge at this time as patient continues to exhibit signs of gwendolyn and psychosis, and express gwendolyn symptoms. Patient requires continued inpatient care because of current acute psychosis and gwendolyn, and requires inpatient level of care to stabilize in order to no longer be gravely disabled due to mental illness. Patient unable to perform ADLs without direction from staff and unable to communicate basic needs. Patient could benefit from continued inpatient hospitalization for crisis stabilization, safety, and medication evaluation. Plan: 1. Psychotropic medications: Patient continues to refuse all medications. 2. Review with patient informed consent and recommendations for psychotropic medication treatment listed below 3. Labs: no additional labs at this time. 4. Therapy: continue milieu and group therapy 5. Further investigation including gathering information from patients relatives and review of past case records to inform treatment plan. 6. Safety/Wellness plan and follow-up outpatient appointments to be established prior to discharge. Next steps are for patient to meet with childcare provider to plan a safe discharge plan and establish outpatient services for ongoing treatment. 7. Confer with inpatient treatment team regarding treatment plan. 8. Psychosocial stressors addressed through case management. 9. Legal status: STC; COM letter submitted last Friday; awaiting trial 10. Consider discharge next week if patient is in stable condition, safe, and has a safe discharge plan. PSYCHOTROPIC MEDICATION TREATMENT INFORMED CONSENT and RECOMMENDATIONS: Review nature of condition, diagnosis, and prognosis. Review nature and purpose of psychotropic medication treatment. Review type of psychotropic medications being ordered. Review risk and benefits of psychotropic medication treatment. Review probable length of time patient will need to take medications. Review risk and benefits of not undergoing psychotropic medication treatment. Review alternative treatments to psychotropic medications. Review psychotropic medications contraindications, drug-drug interactions, side effects, and importance of reporting any side effects to a psychiatric provider or nurse during inpatient hospitalization, and upon discharge to patients psychiatric outpatient provider, primary care provider, or other health intensive care unit nurse. Review importance of asking a nurse, psychiatric provider, or primary care provider any questions or problems concerning the psychotropic medications. Verify patient understands the information that has been provided, and understands, accepts, and agrees to psychotropic medications. Review patients safety plan and importance of patient to report to staff while hospitalized if patient is ever a danger to self/others, or unable to care for self, and upon discharge, the importance for patient to contact [facility] or [facility], or go to the nearest emergency room, if patient is ever a danger to self/others, or unable to care for self. Recommend that upon discharge patient establish medication management treatment with a psychiatric provider, establishes routine therapy appointments, and follow-up with primary care provider. Verify patient understands and agrees to these recommendations. 04/27/18 07:07 Subjective: Following up with patient for evaluation of psychosis and safety. Regarding why patient is hospitalized patient does not answer, stares at this FACILITY COORDINATOR. Patient expresses the following psychiatric symptoms: "I am fine." Patient reports not taking medications as prescribed, patient states, "I am good, I do not need them." Patient continues to refuse medications. When this FACILITY COORDINATOR asks patient if she slept last night patient shrugs her shoulders and stares blankly. Objective: Vital Signs Temp Pulse Resp BP Pulse Ox 36.9 C 97 16 114/69 98 04/27/18 06:00 04/27/18 06:00 04/27/18 06:00 04/27/18 06:00 04/27/18 06:00 NURSING REPORT: Consulted with nursing for update on patients progress in treatment. Nurses report patient is not engaged in treatment, is not attending groups, slept 5 hours, was up throughout the night; patient observed pacing up and down the halls; bizarre behavior; expresses the following psychiatric symptoms: unable to concentrate; exhibits the following psychiatric symptoms: labile, distractible, thought blocking, attending to internal stimuli; is eating all meals with prompting and direction from staff, is not agreeable to medications, and RN reports patient refused all KACIE and PRN medications. MD REPORT FROM WEEKEND: patient refused all medications over weekend; does not believe there is anything wrong with her. MSE: The patient is a well-nourished female looking stated chronological age. Attire is appropriate and dress is hospital garb. Grooming status is appropriate. Ambulation is independent. Gait is normal and coordinated. Posture is normal and relaxed. Eye contact is inappropriate and staring; blank stare. Motor activity is appropriate with purposeful, organized, coordinated movements; with no involuntary movements. Attitude is uncooperative. Patient distracted and does not relate well to this interviewer. Language production is unspontaneous. Rate is severely hesitant. Latency of response is severely prolonged with sad tone, and low volume, and amount is monosyllabic to sparse. Articulation is clear. Patient reports mood as okay with incongruent and flat, constricted affect. Patients thought process is non-linear and illogical, disorganized, blocked. Patient does not report suicidal/homicidal thoughts, ideas, or plans. Patient denies auditory hallucinations, denies visual hallucinations. Patient denies delusions. Patient appears to be attending to internal stimuli during interview. Patients attention and concentration are poor. Patient is oriented to person, place. Patients insight and judgement are poor. - Time Spent With Patient Time Spent With Patient: 15 minutes, met with patient individually. - Pending Discharge Pending Discharge Within 24 Hours: No Pending Discharge Within 48 Hours: No ICD10 Worksheet Patient Problems: Problems Problem Status Onset Acute psychosis Acute Gwendolyn Acute Bipolar I disorder with mood-congruent psychotic features Chronic
[2018-04-27] MEDS: LITHIUM CARBONATE ER 300 MG TAB PO SCH ×2 (08:53→21:43)
--- NOTE | 2018-04-27 13:25 | ASMTCMCOM ---
CM Note CM Note Notes: CC attempted to meet with pt. a few times, each time pt. not responding to CC's questions. Pt. later approached CC and stated she wants to "get out of here". Pt. stated she is willing to take the medications to get out of the hospital. Pt. stated she talked with her brother about the treatment plan and agreed to it. Pt. stated "I know I need help". Pt. stated "talked to my mom and she said to take the medications". Pt. then took a little while to take her [place]. Staff report pt. sleeping 2 hours and refusing her lithium yesterday. Date Signed: 04/27/2018 01:24 PM Electronically Signed By:Keyanna Hatfield
[2018-04-27] MEDS: OLANZapine DISINTEGR 5 MG TAB PO SCH (21:41)
--- NOTE | 2018-04-28 07:05 | SOAPPROG ---
SOAP Progress Note Assessment/Plan: Assessment: Bipolar I Disorder, Severe, With Mood Congruent Psychotic Features. No improvement noted. (see subjective/objective note). Patient is not safe to discharge at this time as patient continues to exhibit signs of gwendolyn and psychosis, and express gwendolyn symptoms. Patient requires continued inpatient care because of current acute psychosis and gwendolyn, and requires inpatient level of care to stabilize in order to no longer be gravely disabled due to mental illness. Patient unable to perform ADLs without direction from staff and unable to communicate basic needs. Patient could benefit from continued inpatient hospitalization for crisis stabilization, safety, and medication evaluation. Plan: 1. Psychotropic medications: Patient continues to refuse all medications. 2. Review with patient informed consent and recommendations for psychotropic medication treatment listed below 3. Labs: no additional labs at this time. 4. Therapy: continue milieu and group therapy 5. Further investigation including gathering information from patients relatives and review of past case records to inform treatment plan. 6. Safety/Wellness plan and follow-up outpatient appointments to be established prior to discharge. Next steps are for patient to meet with career discovery teacher to plan a safe discharge plan and establish outpatient services for ongoing treatment. 7. Confer with inpatient treatment team regarding treatment plan. 8. Psychosocial stressors addressed through case management. 9. Legal status: STC; COM letter submitted last Friday; awaiting trial 10. Consider discharge next week if patient is in stable condition, safe, and has a safe discharge plan. PSYCHOTROPIC MEDICATION TREATMENT INFORMED CONSENT and RECOMMENDATIONS: Review nature of condition, diagnosis, and prognosis. Review nature and purpose of psychotropic medication treatment. Review type of psychotropic medications being ordered. Review risk and benefits of psychotropic medication treatment. Review probable length of time patient will need to take medications. Review risk and benefits of not undergoing psychotropic medication treatment. Review alternative treatments to psychotropic medications. Review psychotropic medications contraindications, drug-drug interactions, side effects, and importance of reporting any side effects to a psychiatric provider or nurse during inpatient hospitalization, and upon discharge to patients psychiatric outpatient provider, primary care provider, or other health care asst. Review importance of asking a nurse, psychiatric provider, or primary care provider any questions or problems concerning the psychotropic medications. Verify patient understands the information that has been provided, and understands, accepts, and agrees to psychotropic medications. Review patients safety plan and importance of patient to report to staff while hospitalized if patient is ever a danger to self/others, or unable to care for self, and upon discharge, the importance for patient to contact [facility] or [facility], or go to the nearest emergency room, if patient is ever a danger to self/others, or unable to care for self. Recommend that upon discharge patient establish medication management treatment with a psychiatric provider, establishes routine therapy appointments, and follow-up with primary care provider. Verify patient understands and agrees to these recommendations. 04/27/18 07:07 Subjective: Following up with patient for evaluation of psychosis and safety. This FLOW WORKER asks patient reason for her refusing HS medications and patient states, "Just don't need them." Patient expresses the following psychiatric symptoms: "I'm okay." Patient continues to refuse medications. This FLOW WORKER educates patient on importance of taking medications as prescribed patient responds, "Okay, I will take them." When this FLOW WORKER asks patient if she slept last night patient states, "Not really, but Im okay, don't really feel tired." Objective: Vital Signs Temp Pulse Resp BP Pulse Ox 36.7 C 95 14 111/51 L 98 04/28/18 06:00 04/28/18 06:00 04/28/18 06:00 04/28/18 06:00 04/28/18 06:00 NURSING REPORT: Consulted with nursing for update on patients progress in treatment. Nurses report patient is not engaged in treatment, is not attending groups, slept 3 hours, was up throughout the night; bizarre behavior in halls, blank stares; expresses the following psychiatric symptoms: none; exhibits the following psychiatric symptoms: labile, distractible, thought blocking, attending to internal stimuli; is eating all meals with prompting and direction from staff, is not agreeable to medications, and RN reports patient refused all KACIE and PRN medications last night. MD REPORT FROM WEEKEND: patient refused all medications over weekend; does not believe there is anything wrong with her. MSE: The patient is a well-nourished female looking stated chronological age. Attire is appropriate and dress is hospital garb. Grooming status is appropriate. Ambulation is independent. Gait is normal and coordinated. Posture is normal and relaxed. Eye contact is inappropriate and staring; blank stare. Motor activity is appropriate with purposeful, organized, coordinated movements; with no involuntary movements. Attitude is uncooperative. Patient distracted and does not relate well to this interviewer. Language production is unspontaneous. Rate is severely hesitant. Latency of response is severely prolonged with sad tone, and low volume, and amount is monosyllabic to sparse. Articulation is clear. Patient reports mood as okay with incongruent and flat, constricted affect. Patients thought process is non-linear and illogical, disorganized, blocked. Patient does not report suicidal/homicidal thoughts, ideas, or plans. Patient denies auditory hallucinations, denies visual hallucinations. Patient denies delusions. Patient appears to be attending to internal stimuli during interview. Patients attention and concentration are poor. Patient is oriented to person, place. Patients insight and judgement are poor. - Time Spent With Patient Time Spent With Patient: 15 minutes, met with patient individually. - Pending Discharge Pending Discharge Within 24 Hours: No Pending Discharge Within 48 Hours: No ICD10 Worksheet Patient Problems: Problems Problem Status Onset Acute psychosis Acute Gwendolyn Acute Bipolar I disorder with mood-congruent psychotic features Chronic
[2018-04-28] MEDS: LITHIUM CARBONATE ER 300 MG TAB PO SCH ×2 (07:58→20:29)
[2018-04-28] MEDS ORDERED: ARIPiprazole 10 MG TAB PO ONE (11:10)
[2018-04-28] MEDS ORDERED: ARIPiprazole 5 MG TAB PO ONE (13:43)
--- NOTE | 2018-04-29 07:26 | SOAPPROG ---
SOAP Progress Note Assessment/Plan: Assessment: Bipolar I Disorder, Severe, With Mood Congruent Psychotic Features. No improvement noted. (see subjective/objective note). Patient is not safe to discharge at this time as patient continues to exhibit signs of gwendolyn and psychosis, and express gwendolyn symptoms. Patient requires continued inpatient care because of current acute psychosis and gwendolyn, and requires inpatient level of care to stabilize in order to no longer be gravely disabled due to mental illness. Patient is unable to communicate her basic needs and unable to perform ADLs without direction and prompting from staff. Patient could benefit from continued inpatient hospitalization for crisis stabilization, safety, and medication evaluation. Plan: 1. Psychotropic medications: Patient continues to intermittently refuse medications; has been agreeable to lithium ER 300 mg x3 doses, continues to refuse Abilify. Patient could benefit from Abilify for psychosis symptoms; will continue to educate patient on importance of taking medications as prescribed. Awaiting court order medications. 2. Review with patient informed consent and recommendations for psychotropic medication treatment listed below 3. Labs: no additional labs at this time. 4. Therapy: continue milieu and group therapy 5. Further investigation including gathering information from patients relatives and review of past case records to inform treatment plan. 6. Safety/Wellness plan and follow-up outpatient appointments to be established prior to discharge. Next steps are for patient to meet with rn care transition to plan a safe discharge plan and establish outpatient services for ongoing treatment. 7. Confer with inpatient treatment team regarding treatment plan. 8. Psychosocial stressors addressed through case management. 9. Legal status: STC; COM letter submitted last Friday; awaiting response from courts/patient's executive assistant to general counsel 10. Consider discharge next week if patient is in stable condition, safe, and has a safe discharge plan. PSYCHOTROPIC MEDICATION TREATMENT INFORMED CONSENT and RECOMMENDATIONS: Review nature of condition, diagnosis, and prognosis. Review nature and purpose of psychotropic medication treatment. Review type of psychotropic medications being ordered. Review risk and benefits of psychotropic medication treatment. Review probable length of time patient will need to take medications. Review risk and benefits of not undergoing psychotropic medication treatment. Review alternative treatments to psychotropic medications. Review psychotropic medications contraindications, drug-drug interactions, side effects, and importance of reporting any side effects to a psychiatric provider or nurse during inpatient hospitalization, and upon discharge to patients psychiatric outpatient provider, primary care provider, or other health critical care physician assistant. Review importance of asking a nurse, psychiatric provider, or primary care provider any questions or problems concerning the psychotropic medications. Verify patient understands the information that has been provided, and understands, accepts, and agrees to psychotropic medications. Review patients safety plan and importance of patient to report to staff while hospitalized if patient is ever a danger to self/others, or unable to care for self, and upon discharge, the importance for patient to contact [facility] or [facility], or go to the nearest emergency room, if patient is ever a danger to self/others, or unable to care for self. Recommend that upon discharge patient establish medication management treatment with a psychiatric provider, establishes routine therapy appointments, and follow-up with primary care provider. Verify patient understands and agrees to these recommendations. 04/29/18 07:24 Subjective: Following up with patient for evaluation of psychosis, gwendolyn, and safety. Patient reports taking lithium ER last night at bedtime. Patient expresses the following psychiatric symptoms: "I'm okay." Patient continues to refuse Abilify 5 mg po. This JBOSS DEVELOPER educates patient on importance of taking Abilify as prescribed patient responds, "Okay, I will take it today." Patient agrees to continue current medications and reports no side effects. When this JBOSS DEVELOPER asks patient if she slept last night patient states, "Yes, I slept a little better last night." Objective: Vital Signs Temp Pulse Resp BP Pulse Ox 37 C 112 H 16 116/62 98 04/29/18 06:00 04/29/18 06:00 04/29/18 06:00 04/29/18 06:00 04/29/18 06:00 NURSING REPORT: Consulted with nursing for update on patients progress in treatment. Nurses report patient is engaged in treatment, is attending groups, slept 5.5 hours, was up a few times throughout the night; bizarre behavior in halls, blank stares; expresses the following psychiatric symptoms: none; exhibits the following psychiatric symptoms: labile, distractible, thought blocking, attending to internal stimuli; patients nourishment and fluid intake has improved and continues to require direction and prompting from staff; was agreeable to lithium ER at bedtime, refused Abilify 5 mg po QD yesterday. Patient reports no side effects from current medications. MD REPORT FROM WEEKEND: patient refused all medications over weekend; does not believe there is anything wrong with her. MSE: The patient is a well-nourished female looking stated chronological age. Attire is appropriate and dress is hospital garb. Grooming status is appropriate. Ambulation is independent. Gait is normal and coordinated. Posture is normal and relaxed. Eye contact is inappropriate and staring; blank stare. Motor activity is appropriate with purposeful, organized, coordinated movements; with no involuntary movements. Attitude is uncooperative. Patient distracted and does not relate well to this interviewer. Language production is unspontaneous. Rate is severely hesitant. Latency of response is severely prolonged with sad tone, and low volume, and amount is monosyllabic to sparse. Articulation is clear. Patient reports mood as okay with incongruent and flat, constricted affect. Patients thought process is non-linear and illogical, disorganized, blocked. Patient does not report suicidal/homicidal thoughts, ideas, or plans. Patient denies auditory hallucinations, denies visual hallucinations. Patient denies delusions. Patient appears to be attending to internal stimuli during interview. Patients attention and concentration are poor. Patient is oriented to person, place. Patients insight and judgement are poor. - Time Spent With Patient Time Spent With Patient: 15 minutes, met with patient individually. - Pending Discharge Pending Discharge Within 24 Hours: No Pending Discharge Within 48 Hours: No ICD10 Worksheet Patient Problems: Problems Problem Status Onset Acute psychosis Acute Gwendolyn Acute Bipolar I disorder with mood-congruent psychotic features Chronic
[2018-04-29] MEDS: LITHIUM CARBONATE ER 300 MG TAB PO SCH ×2 (08:05→19:45)
[2018-04-29] MEDS: ARIPiprazole 5 MG TAB PO SCH (08:05)
--- NOTE | 2018-04-29 13:22 | ASMTCMCOM ---
CM Note CM Note Notes: Client suggests, "feeling good today, but numb," during check-in. Client presents the same as previous days, flat affect, limited interaction with staff or peers. Client suggests she is not feeling any anxiety, depression, AVH, and/or S/I-H/I; however, only notes, "I feel numb..." Client notes her goal today is for her to "be discharged and go home to family." CC was able to re-direct client in thinking about taking medications that are ordered for her by her provider; after a couple of minutes client was able to take her morning dosages of meds. Additionally, client suggests receiving roughly "5 hours of sleep last night." Client continues to lack insight into her mental health issues and treatment. Date Signed: 04/29/2018 01:21 PM Electronically Signed By:Douglas Wiley
--- NOTE | 2018-04-30 06:55 | SOAPPROG ---
SOAP Progress Note Assessment/Plan: Assessment: Bipolar I Disorder, Severe, With Mood Congruent Psychotic Features. Slight improvement noted; notably improved sleep (see subjective/objective note). Patient is not safe to discharge at this time as patient continues to exhibit signs of gwendolyn and psychosis, and express gwendolyn symptoms. Patient requires continued inpatient care because of current acute psychosis and gwendolyn, and requires inpatient level of care to stabilize in order to no longer be gravely disabled due to mental illness. Patient is unable to communicate her basic needs and unable to perform ADLs without direction and prompting from staff. Patient could benefit from continued inpatient hospitalization for crisis stabilization, safety, and medication evaluation. Plan: 1. Psychotropic medications: After reviewing options, risks, and benefits patient agrees to continue current medications. No medication changes at this time as more time is needed to determine ongoing tolerability and efficacy. Plan is to continue to observe patient for response and side effects from medications, and ongoing monitoring and evaluation. 2. Review with patient informed consent and recommendations for psychotropic medication treatment listed below 3. Labs: no additional labs at this time. 4. Therapy: continue milieu and group therapy 5. Further investigation including gathering information from patients relatives and review of past case records to inform treatment plan. 6. Safety/Wellness plan and follow-up outpatient appointments to be established prior to discharge. Next steps are for patient to meet with customer care assistant to plan a safe discharge plan and establish outpatient services for ongoing treatment. 7. Confer with inpatient treatment team regarding treatment plan. 8. Psychosocial stressors addressed through case management. 9. Legal status: [facility] and [facility] 10. Consider discharge next week if patient is in stable condition, safe, and has a safe discharge plan. PSYCHOTROPIC MEDICATION TREATMENT INFORMED CONSENT and RECOMMENDATIONS: Review nature of condition, diagnosis, and prognosis. Review nature and purpose of psychotropic medication treatment. Review type of psychotropic medications being ordered. Review risk and benefits of psychotropic medication treatment. Review probable length of time patient will need to take medications. Review risk and benefits of not undergoing psychotropic medication treatment. Review alternative treatments to psychotropic medications. Review psychotropic medications contraindications, drug-drug interactions, side effects, and importance of reporting any side effects to a psychiatric provider or nurse during inpatient hospitalization, and upon discharge to patients psychiatric outpatient provider, primary care provider, or other health health careers instructor. Review importance of asking a nurse, psychiatric provider, or primary care provider any questions or problems concerning the psychotropic medications. Verify patient understands the information that has been provided, and understands, accepts, and agrees to psychotropic medications. Review patients safety plan and importance of patient to report to staff while hospitalized if patient is ever a danger to self/others, or unable to care for self, and upon discharge, the importance for patient to contact [facility] or [facility], or go to the nearest emergency room, if patient is ever a danger to self/others, or unable to care for self. Recommend that upon discharge patient establish medication management treatment with a psychiatric provider, establishes routine therapy appointments, and follow-up with primary care provider. Verify patient understands and agrees to these recommendations. 04/30/18 06:54 Subjective: Following up with patient for evaluation of psychosis, gwendolyn, and safety. Patient reports taking lithium ER last night at bedtime, and Abilify yesterday AM. Patient reports taking medications as prescribed, and describes response to medications as "good, feel better." Patient does not report undesirable side effects from the medications, and agrees to continue current medications. Patient expresses the following psychiatric symptoms: "I'm doing better." When this DIRECTOR SUPPLY CHAIN asks patient if she slept last night patient states, "I slept well last night, best so far." Objective: Vital Signs Temp Pulse Resp BP Pulse Ox 36.3 C 100 16 120/70 95 04/30/18 06:00 04/30/18 06:00 04/30/18 06:00 04/30/18 06:00 04/30/18 06:00 NURSING REPORT: Consulted with nursing for update on patients progress in treatment. Nurses report patient is engaged in treatment, is attending groups, slept 8 hours and slept throughout the night, expresses the following psychiatric symptoms: anxious; exhibits the following psychiatric symptoms: distractible, thought blocking; patients nourishment and fluid intake has improved and continues to require direction and prompting from staff to attend to ADLs; was agreeable to lithium ER at bedtime; has been agreeable to medications and taking as prescribed with no report of side effects, with no s/ s of EPS/akathisia, and denies SI/HI, denies A/V hallucinations, and denies delusions. MSE: The patient is a well-nourished female looking stated chronological age. Attire is appropriate and dress is hospital garb. Grooming status is appropriate. Ambulation is independent. Gait is normal and coordinated. Posture is normal and relaxed. Eye contact is inappropriate and staring; blank stare. Motor activity is appropriate with purposeful, organized, coordinated movements; with no involuntary movements. Attitude is cooperative and friendly. Patient distracted and does not relate well to this interviewer. Language production is unspontaneous. Rate is hesitant. Latency of response is prolonged with low volume, and amount is monosyllabic to sparse. Articulation is clear. Patient reports mood as okay with incongruent and flat, constricted affect. Patients thought process is disorganized, blocked. Patient does not report suicidal/homicidal thoughts, ideas, or plans. Patient denies auditory hallucinations, denies visual hallucinations. Patient denies delusions. Patient does appear to be attending to internal stimuli during interview. Patients attention and concentration are poor. Patient is oriented to person, place. Patients insight and judgement are poor. - Time Spent With Patient Time Spent With Patient: 15 minutes, met with patient individually. - Pending Discharge Pending Discharge Within 24 Hours: No Pending Discharge Within 48 Hours: No ICD10 Worksheet Patient Problems: Problems Problem Status Onset Acute psychosis Acute Gwendolyn Acute Bipolar I disorder with mood-congruent psychotic features Chronic
[2018-04-30] MEDS: LITHIUM CARBONATE ER 300 MG TAB PO SCH ×2 (08:31→21:12)
[2018-04-30] MEDS: ARIPiprazole 5 MG TAB PO SCH (08:31)
--- NOTE | 2018-04-30 11:39 | ASMTBHDC ---
Notes Note: Notes: Pt. reports feeling "okay, just tired". Pt. stated she slept "okay". Pt. reports eating well. Pt. stated her medications are making her feel drowsy and stated "it's weird" to be taking medications. Pt. stated she is unsure of her discharge date. Pt. stated when she discharges she will return to living with her mother. Pt. stated she is not sure about if she will be returning to college in [place] or not. Pt. presents as alert, cooperative, groomed, polite, good eye contact, and with a mostly pleasant demeanor. Staff report pt. sleeping 11 hours and being medication compliant. Pt. was overheard stating in group that she "slept too much". Date Signed: 04/30/2018 11:39 AM Electronically Signed By:Keyanna Hatfield
--- NOTE | 2018-05-01 07:02 | SOAPPROG ---
SOAP Progress Note Assessment/Plan: Assessment: Bipolar I Disorder, Severe, With Mood Congruent Psychotic Features. Slight improvement noted; notably improved sleep (see subjective/objective note). Patient is not safe to discharge at this time as patient continues to exhibit signs of gwendolyn and psychosis, and express psychosis symptoms. Patient requires continued inpatient care because of current acute psychosis and gwendolyn, and requires inpatient level of care to stabilize in order to no longer be gravely disabled due to mental illness. Patient is unable to communicate her basic needs and unable to perform ADLs without direction and prompting from staff. Patient could benefit from continued inpatient hospitalization for crisis stabilization, safety, and medication evaluation. Patient could benefit from therapeutic lithium level prior to discharge and safe discharge plan with continuity of care to outpatient services in community as patient has history of non-adherence. Plan: 1. Psychotropic medications: After reviewing options, risks, and benefits patient agrees to continue current medications. No medication changes at this time as more time is needed to determine ongoing tolerability and efficacy. Plan is to continue to observe patient for response and side effects from medications, and ongoing monitoring and evaluation. Consider Abilify Maintena 400 mg IM OLIVA if patient continues to respond to and tolerate Abilify oral dosing. 2. Review with patient informed consent and recommendations for psychotropic medication treatment listed below 3. Labs: no additional labs at this time. 4. Therapy: continue milieu and group therapy 5. Further investigation including gathering information from patients relatives and review of past case records to inform treatment plan. 6. Safety/Wellness plan and follow-up outpatient appointments to be established prior to discharge. Next steps are for patient to meet with administrator health care facility to plan a safe discharge plan and establish outpatient services for ongoing treatment. 7. Confer with inpatient treatment team regarding treatment plan. 8. Psychosocial stressors addressed through case management. 9. Legal status: [facility] and [facility] 10. Consider discharge next week if patient is in stable condition, safe, and has a safe discharge plan. PSYCHOTROPIC MEDICATION TREATMENT INFORMED CONSENT and RECOMMENDATIONS: Review nature of condition, diagnosis, and prognosis. Review nature and purpose of psychotropic medication treatment. Review type of psychotropic medications being ordered. Review risk and benefits of psychotropic medication treatment. Review probable length of time patient will need to take medications. Review risk and benefits of not undergoing psychotropic medication treatment. Review alternative treatments to psychotropic medications. Review psychotropic medications contraindications, drug-drug interactions, side effects, and importance of reporting any side effects to a psychiatric provider or nurse during inpatient hospitalization, and upon discharge to patients psychiatric outpatient provider, primary care provider, or other health manager managed care. Review importance of asking a nurse, psychiatric provider, or primary care provider any questions or problems concerning the psychotropic medications. Verify patient understands the information that has been provided, and understands, accepts, and agrees to psychotropic medications. Review patients safety plan and importance of patient to report to staff while hospitalized if patient is ever a danger to self/others, or unable to care for self, and upon discharge, the importance for patient to contact [facility] or [facility], or go to the nearest emergency room, if patient is ever a danger to self/others, or unable to care for self. Recommend that upon discharge patient establish medication management treatment with a psychiatric provider, establishes routine therapy appointments, and follow-up with primary care provider. Verify patient understands and agrees to these recommendations. 05/01/18 06:59 Subjective: Following up with patient for evaluation of psychosis, gwendolyn, and safety. Patient reports taking all medications as prescribed yesterday. Patient reports she has taken medications as prescribed for the past several days, and describes response to medications as good. Patient does not report undesirable side effects from the medications, and agrees to continue current medications. Patient expresses the following psychiatric symptoms: "Doing better, sleeping better, and focusing is easier." Patient reports sleeping 10 hours last night, and reports sleeping throughout the night. Objective: Vital Signs Temp Pulse Resp BP Pulse Ox 36.9 C 87 16 113/56 L 97 05/01/18 06:00 05/01/18 06:00 05/01/18 06:00 05/01/18 06:00 05/01/18 06:00 NURSING REPORT: Consulted with nursing for update on patients progress in treatment. Nurses report patient is engaged in treatment, is attending groups, slept 9 hours and slept throughout the night, expresses the following psychiatric symptoms: anxious; exhibits the following psychiatric symptoms: distractible, thought blocking; patients nourishment and fluid intake continue to improve; patient continues to require direction and prompting from staff to attend to ADLs; has been agreeable to medications and taking as prescribed with no report of side effects, with no s/s of EPS/akathisia, and denies SI/HI, denies A/V hallucinations, and denies delusions. MSE: The patient is a well-nourished female looking stated chronological age. Attire is appropriate and dress is hospital garb. Grooming status is appropriate. Ambulation is independent. Gait is normal and coordinated. Posture is normal and relaxed. Eye contact is inappropriate and staring; blank stare. Motor activity is appropriate with purposeful, organized, coordinated movements; with no involuntary movements. Attitude is cooperative and friendly. Patient distracted and does not relate well to this interviewer. Language production is unspontaneous. Rate is hesitant. Latency of response is prolonged with low volume, and amount is monosyllabic to sparse. Articulation is clear. Patient reports mood as okay with incongruent and flat, constricted affect. Patients thought process is disorganized, blocked. Patient does not report suicidal/homicidal thoughts, ideas, or plans. Patient denies auditory hallucinations, denies visual hallucinations. Patient denies delusions. Patient does appear to be attending to internal stimuli during interview. Patients attention and concentration are poor. Patient is oriented to person, place. Patients insight and judgement are poor. - Time Spent With Patient Time Spent With Patient: 15 minutes, met with patient individually. - Pending Discharge Pending Discharge Within 24 Hours: No Pending Discharge Within 48 Hours: No ICD10 Worksheet Patient Problems: Problems Problem Status Onset Acute psychosis Acute Gwendolyn Acute Bipolar I disorder with mood-congruent psychotic features Chronic
[2018-05-01] MEDS: LITHIUM CARBONATE ER 300 MG TAB PO SCH ×2 (07:36→19:59)
[2018-05-01] MEDS: ARIPiprazole 5 MG TAB PO SCH (07:36)
[2018-05-02] MEDS: ARIPiprazole 5 MG TAB PO SCH (08:59)
[2018-05-02] MEDS: LITHIUM CARBONATE ER 300 MG TAB PO SCH ×2 (08:59→18:15)
--- NOTE | 2018-05-02 11:01 | SOAPPROG ---
SOAP Progress Note Assessment/Plan: Assessment: 22yo F with Bipolar I Disorder, Severe, With Mood Congruent Psychotic Features. Gradually improving on meds. 05/02/18 11:15 slept 8hr. reported as improving gradually since compliant with meds. stipulated to COM. pt denies med s/e except feeling tired in AM. taking lithium 300mg bid and abilify 5mg. doesn't particularly feel meds are working but does note she feels better and ready to go home. still planning on starting IM abilify maintenna after weekend if no probs with po. State prior to admission, "something was wrong, I was manic". mse: cooperative, good eye contact, nml speech rate/vol, soft-spoken, mood "fine ", affect calm and appropriate to conversation. thoughts goal directed, linear, no delusions, denied si/hi or ah/vh. i/j- limited/fair. cognition intact. Plan: -Continue phone restriction with mother who has been supporting and fostering patient's delusional beliefs. -On STC and stipulated to c.o. meds. -Started [place] recently, level pending for tomorrow 05/03 -Also continue on Abilify, if tolerating, plan Abilify Maintenna 400mg IM due to hx of nonadherence -cont milieu and group therapy, establish outpt appts prior to d/c. -APS involved Objective: Vital Signs Temp Pulse Resp BP Pulse Ox 36.8 C 84 16 121/62 H 98 05/02/18 06:00 05/02/18 06:00 05/02/18 06:00 05/02/18 06:00 05/02/18 06:00 - Time Spent With Patient Time Spent With Patient: 20min - Pending Discharge Pending Discharge Within 24 Hours: No Pending Discharge Within 48 Hours: No ICD10 Worksheet Patient Problems: Problems Problem Status Onset Acute psychosis Acute Gwendolyn Acute Bipolar I disorder with mood-congruent psychotic features Chronic
--- NOTE | 2018-05-02 12:50 | ASMTCMCOM ---
CM Note CM Note Notes: Pt. reports feeling "good". Pt. stated she slept "okay" adding she had a few nightmares, which pt. stated is normal. Pt. reports not eating as much due to not liking the hospital food. Pt. reports feeling "drowsy", and having a "headache" from her medications. Pt. reports no issues while on the unit. Pt. stated she is "just staying in the zone to get out of here". Pt. stated she believes she will be discharging next week sometime. Pt. denied SI, HI, AVH and paranoia. Pt. requested AG. Pt. presents as alert, calm, good eye contact, cooperative, and with a friendly demeanor. Staff report pt. sleeping 8 hours, eating well, and being medication compliant. Date Signed: 05/02/2018 12:49 PM Electronically Signed By:Keyanna Hatfield
[2018-05-03] MEDS: ARIPiprazole 5 MG TAB PO SCH (08:42)
[2018-05-03] MEDS: LITHIUM CARBONATE ER 300 MG TAB PO SCH ×2 (08:42→20:40)
--- NOTE | 2018-05-03 10:30 | SOAPPROG ---
SOAP Progress Note Assessment/Plan: Assessment: 22yo F with Bipolar I Disorder, Severe, With Mood Congruent Psychotic Features. Gradually improving on meds. 05/02/18 11:15 slept 8hr. reported as improving gradually since compliant with meds. stipulated to COM. pt denies med s/e except feeling tired in AM. taking lithium 300mg bid and abilify 5mg. doesn't particularly feel meds are working but does note she feels better and ready to go home. still planning on starting IM abilify maintenna after weekend if no probs with po. State prior to admission, "something was wrong, I was manic". mse: cooperative, good eye contact, nml speech rate/vol, soft-spoken, mood "fine ", affect calm and appropriate to conversation. thoughts goal directed, linear, no delusions, denied si/hi or ah/vh. i/j- limited/fair. cognition intact. Plan: -Continue phone restriction with mother who has been supporting and fostering patient's delusional beliefs. -On STC and stipulated to c.o. meds. -Started [place] recently, level pending for tomorrow 05/03 -Also continue on Abilify, if tolerating, plan Abilify Maintenna 400mg IM due to hx of nonadherence -cont milieu and group therapy, establish outpt appts prior to d/c. -APS involved 05/03/18 15:14 per staff, slept 8.5hr. taking meds. RN unable to draw labs for Li despite several attempts. Pt will try hydrating more. calm, cooperative, groomed, nml psychom activity, good e/c, nml speech rate/ vol. mood "I'm ready to go home", affect constricted but engaging appropriately. denied any psychotic sxs, denied SI or thoughts to harm others. i /j seems fair. cogn intact. denied any med s/e. no intention tremor noted on exam. no EPS. PLAN -change [place] from 300mg bid to 600mg qhs. states experiencing some AM sedation. o/w no s/e. not clinically appearing with any Li+ toxicity and no gwendolyn or mood instability noted. -cont Abilify 5mg daily -continues on phone restriction. pt would like to t/w her mother. planning to return there after d/c. address lifting this with primary team. -cont STC/ stipulated COM. - Objective: Vital Signs Temp Pulse Resp BP Pulse Ox 36.6 C 86 16 124/58 H 99 05/03/18 06:00 05/03/18 06:00 05/03/18 06:00 05/03/18 06:00 05/03/18 06:00 - Time Spent With Patient Time Spent With Patient: 15min - Pending Discharge Pending Discharge Within 24 Hours: No Pending Discharge Within 48 Hours: No ICD10 Worksheet Patient Problems: Problems Problem Status Onset Acute psychosis Acute Gwendolyn Acute Bipolar I disorder with mood-congruent psychotic features Chronic
--- NOTE | 2018-05-03 12:40 | ASMTBHDC ---
Notes Note: Notes: Pt. reports feeling "okay". Pt. stated she slept "okay" and did not report any nightmares. Pt. stated she is eating well and there are no issues with her medications. Pt. stated she is taking Abilify and [place]. Pt. stated she is attending groups. Pt. stated she can fill and take her medications upon discharge. Pt. stated she get herself to her follow up appointments. Pt. stated either her mom or brother could pick her up upon discharge. Pt. stated "just want to go". Pt. denied SI, HI, AVH and paranoia. Pt. presents as alert, calm, a bit guarded at times, good eye contact, cooperative and with a mostly pleasant demeanor. Staff report pt. sleeping 8.5 hours and being medication compliant. Staff were unable to draw blood for labs this morning and will try again tomorrow morning. Pt. is scheduled to get a long acting injectable tomorrow. Date Signed: 05/03/2018 12:39 PM Electronically Signed By:Keyanna Hatfield
--- NOTE | 2018-05-04 07:04 | SOAPPROG ---
SOAP Progress Note Assessment/Plan: Assessment: Bipolar I Disorder, Severe, With Mood Congruent Psychotic Features. Slight improvement noted; notably improved sleep (see subjective/objective note). Patient is not safe to discharge at this time as patient continues to exhibit signs of psychosis. Patient requires continued inpatient care because of current acute psychosis, and requires inpatient level of care to stabilize in order to no longer be gravely disabled due to mental illness. Patient is unable to communicate her basic needs and unable to perform ADLs without direction and prompting from staff. Patient could benefit from continued inpatient hospitalization for crisis stabilization, safety, and medication evaluation. Patient could benefit from therapeutic lithium level prior to discharge and initiation of OLIVA prior to discharge due to history of non- adherence of medications that leads to decompensation and repeat hospitalizations. Patient attempted to jump from a moving care prior to hospitalization and in addition to being gravely disabled has demonstrated potential for risk to herself when her condition is not managed appropriately with medications. Plan: 1. Psychotropic medications: After reviewing options, risks, and benefits patient agrees to continue current medications and increase Abilify to 10 mg po QD. No other medication changes at this time as more time is needed to determine ongoing tolerability and efficacy. Plan is to continue to observe patient for response and side effects from medications, and ongoing monitoring and evaluation. 2. Review with patient informed consent and recommendations for psychotropic medication treatment listed below 3. Labs: awaiting lab draw for lithium level 4. Therapy: continue milieu and group therapy 5. Further investigation including gathering information from patients relatives and review of past case records to inform treatment plan. 6. Safety/Wellness plan and follow-up outpatient appointments to be established prior to discharge. Next steps are for patient to meet with customer care voice consultant to plan a safe discharge plan and establish outpatient services for ongoing treatment. 7. Confer with inpatient treatment team regarding treatment plan. 8. Psychosocial stressors addressed through case management. 9. Legal status: [facility] and [facility] 10. Consider discharge Friday if patient is in stable condition, safe, and has a safe discharge plan. PSYCHOTROPIC MEDICATION TREATMENT INFORMED CONSENT and RECOMMENDATIONS: Review nature of condition, diagnosis, and prognosis. Review nature and purpose of psychotropic medication treatment. Review type of psychotropic medications being ordered. Review risk and benefits of psychotropic medication treatment. Review probable length of time patient will need to take medications. Review risk and benefits of not undergoing psychotropic medication treatment. Review alternative treatments to psychotropic medications. Review psychotropic medications contraindications, drug-drug interactions, side effects, and importance of reporting any side effects to a psychiatric provider or nurse during inpatient hospitalization, and upon discharge to patients psychiatric outpatient provider, primary care provider, or other health inpatient care manager rn. Review importance of asking a nurse, psychiatric provider, or primary care provider any questions or problems concerning the psychotropic medications. Verify patient understands the information that has been provided, and understands, accepts, and agrees to psychotropic medications. Review patients safety plan and importance of patient to report to staff while hospitalized if patient is ever a danger to self/others, or unable to care for self, and upon discharge, the importance for patient to contact [facility] or [facility], or go to the nearest emergency room, if patient is ever a danger to self/others, or unable to care for self. Recommend that upon discharge patient establish medication management treatment with a psychiatric provider, establishes routine therapy appointments, and follow-up with primary care provider. Verify patient understands and agrees to these recommendations. 05/04/18 07:12 Subjective: Following up with patient for evaluation of psychosis, gwendolyn, and safety. Patient reports taking all medications as prescribed yesterday. Patient reports she has taken medications as prescribed for the past several days, and describes response to medications as good. Patient does not report undesirable side effects from the medications, and agrees to continue current medications. Patient expresses the following psychiatric symptoms: "They're fine." Patient reports sleeping 8 hours last night, and reports sleeping throughout the night. With regard to improvement since her admission patient reports, "Better." Patient agrees to increase Abilify to 10 mg po QD and increase lithium ER as indicated by lithium level. Patient agrees to lithium level today. Objective: Vital Signs Temp Pulse Resp BP Pulse Ox 36.6 C 86 16 124/58 H 99 05/03/18 06:00 05/03/18 06:00 05/03/18 06:00 05/03/18 06:00 05/03/18 06:00 NURSING REPORT: Consulted with nursing for update on patients progress in treatment. Nurses report patient is engaged in treatment, is attending groups, slept 9 hours and slept throughout the night, expresses the following psychiatric symptoms: anxious; exhibits the following psychiatric symptoms: distractible, thought blocking; patients nourishment and fluid intake continue to improve; patient continues to require direction and prompting from staff to attend to ADLs; has been agreeable to medications and taking as prescribed with no report of side effects, with no s/s of EPS/akathisia, and denies SI/HI, denies A/V hallucinations, and denies delusions. MSE: The patient is a well-nourished female looking stated chronological age. Attire is appropriate and dress is hospital garb. Grooming status is appropriate. Ambulation is independent. Gait is normal and coordinated. Posture is normal and relaxed. Eye contact is inappropriate and staring; blank stare. Motor activity is under-active with purposeful, organized, coordinated movements; with no involuntary movements. Attitude is cooperative and friendly. Patient distracted and does not relate well to this interviewer. Language production is unspontaneous. Rate is hesitant. Latency of response is prolonged with low volume, and amount is monosyllabic to sparse. Articulation is clear. Patient reports mood as okay with incongruent and flat, constricted affect. Patients thought process is disorganized, blocked. Patient does not report suicidal/homicidal thoughts, ideas, or plans. Patient denies auditory hallucinations, denies visual hallucinations. Patient denies delusions. Patient does appear to be attending to internal stimuli during interview. Patients attention and concentration are poor. Patient is oriented to person, place. Patient's insight is poor, judgment has improved. COGNITIVE FUNCTION: latency of responses prolonged; would stare with blank gaze for a long period of time before providing answer to questions Retention / Recall: repeat back these numbers: 5 1 5 0 3 / 9 6 8 3 6 4 2 - with difficulty; able to recall 3/7 numbers in second set Abstractions: How is an airplane similar to a bird? - "they both fly." Patient states she has never heard rolling stones gather no galan or people in glass houses shouldn't throw stones. Memory: Remember these 3 items, ask to repeat back: Pin, Car, Duck. - "Pin, Bird, Car" after 3 minutes Judgement: If you were in a restaurant and heard a fire alarm go off, what would you do? - "probably leave the restaurant" If you found a stamped, sealed envelope on the side walk, what would you do with it? 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 Before that? Nathan Bishop - Time Spent With Patient Time Spent With Patient: 20 minutes, met with patient individually. - Pending Discharge Pending Discharge Within 24 Hours: No Pending Discharge Within 48 Hours: No ICD10 Worksheet Patient Problems: Problems Problem Status Onset Acute psychosis Acute Gwendolyn Acute Bipolar I disorder with mood-congruent psychotic features Chronic
[2018-05-04] MEDS: ARIPiprazole 5 MG TAB PO SCH (08:21)
[2018-05-04] MEDS: LITHIUM CARBONATE ER 300 MG TAB PO SCH ×2 (08:21→20:54)
[2018-05-04] MEDS ORDERED: ARIPIPRAZOLE (ABILIFY MAINTENA) 400 MG VIAL IM ONE (09:00)
--- NOTE | 2018-05-04 13:28 | ASMTCMCOM ---
CM Note CM Note Notes: CC and provider speak to Mary ([facility] hospital liaison regarding poss. transfer of certification etc. Explain case to Mary, etc. Will tentatively plan family meeting on Friday05/08/18 at 2pm with Mary present to speak on behalf of [facility] and the possibility of them holding client's certification and COM, etc. Date Signed: 05/04/2018 01:28 PM Electronically Signed By:Douglas Wiley
--- NOTE | 2018-05-05 07:08 | SOAPPROG ---
SOAP Progress Note Assessment/Plan: Assessment: Bipolar I Disorder, Severe, With Mood Congruent Psychotic Features. Slight improvement noted; notably improved sleep and thought process (see subjective/ objective note). Patient is not safe to discharge at this time as patient continues to exhibit signs of psychosis. Patient requires continued inpatient care because of current acute psychosis, and requires inpatient level of care to stabilize in order to no longer be gravely disabled due to mental illness. Patient is unable to communicate her basic needs and unable to perform ADLs without direction and prompting from staff. Patient could benefit from continued inpatient hospitalization for crisis stabilization, safety, and medication evaluation. Patient could benefit from therapeutic lithium level prior to discharge and initiation of OLIVA prior to discharge due to history of non-adherence of medications that leads to decompensation and repeat hospitalizations. Patient attempted to jump from a moving care prior to hospitalization and in addition to being gravely disabled has soon potential for risk to herself when her condition is not managed appropriately with medications. OLIVA to be administered today with lithium level on Friday; lithium level increased today as level yesterday was 0.4 and sub therapeutic. Plan: 1. Psychotropic medications: After reviewing options, risks, and benefits patient agrees to continue current medications and agrees to following changes: increase lithium ER to 900 mg po QHS, patient agrees to once daily dosing at bedtime of lithium to improve adherence after discharge, and patient agrees to Abilify Maintena 400 mg IM to be administered today. No other medication changes at this time as more time is needed to determine ongoing tolerability and efficacy. Plan is to continue to observe patient for response and side effects from medications, and ongoing monitoring and evaluation. 2. Review with patient informed consent and recommendations for psychotropic medication treatment listed below including current medications and Abilify Maintena 400 mg IM [id number] to be administered today. 3. Labs: lithium level 0.4 yesterday, increase dose with follow-up lab on . 4. Therapy: continue milieu and group therapy 5. Further investigation including gathering information from patients relatives and review of past case records to inform treatment plan. 6. Safety/Wellness plan and follow-up outpatient appointments to be established prior to discharge. Next steps are for patient to meet with life care planner to plan a safe discharge plan and establish outpatient services for ongoing treatment. 7. Confer with inpatient treatment team regarding treatment plan. 8. Psychosocial stressors addressed through case management. 9. Legal status: [facility] and [facility] 10. Consider discharge Friday if patient is in stable condition, safe, and has a safe discharge plan. 11. Review plan for family meeting today in treatment team meeting. PSYCHOTROPIC MEDICATION TREATMENT INFORMED CONSENT and RECOMMENDATIONS: Review nature of condition, diagnosis, and prognosis. Review nature and purpose of psychotropic medication treatment. Review type of psychotropic medications being ordered. Review risk and benefits of psychotropic medication treatment. Review probable length of time patient will need to take medications. Review risk and benefits of not undergoing psychotropic medication treatment. Review alternative treatments to psychotropic medications. Review psychotropic medications contraindications, drug-drug interactions, side effects, and importance of reporting any side effects to a psychiatric provider or nurse during inpatient hospitalization, and upon discharge to patients psychiatric outpatient provider, primary care provider, or other health neonatal intensive care nurse. Review importance of asking a nurse, psychiatric provider, or primary care provider any questions or problems concerning the psychotropic medications. Verify patient understands the information that has been provided, and understands, accepts, and agrees to psychotropic medications. Review patients safety plan and importance of patient to report to staff while hospitalized if patient is ever a danger to self/others, or unable to care for self, and upon discharge, the importance for patient to contact [facility] or [facility], or go to the nearest emergency room, if patient is ever a danger to self/others, or unable to care for self. Recommend that upon discharge patient establish medication management treatment with a psychiatric provider, establishes routine therapy appointments, and follow-up with primary care provider. Verify patient understands and agrees to these recommendations. 05/05/18 07:09 Subjective: Following up with patient for evaluation of psychosis, gwendolyn, and safety. Patient reports, "Feeling much better, the medications are working well." Patient expresses the following psychiatric symptoms "a little anxious about being here still." Patient reports taking medications as prescribed, and describes response to medications as good. Patient does not report undesirable side effects from the medications, and agrees to continue current medications. Patient states, "The medications are fine, I have not had any side effects from them, I'm good." This DEPUTY BUILDING GUARD reviews risks and benefits of Abilify Maintena 400 mg IM [id number] with patient. Patient reports, "The shot sounds good. That way I will only have to get it once a month instead of a pill every day." Patient describes getting 8 hours of sleep, and reports she feels rested today. This DEPUTY BUILDING GUARD reviews lithium level lab and risks and benefits of lithium with patient. Patient agrees to increase lithium ER to 900 mg QHS single daily dose to improve adherence after discharge with lithium level on Friday05/08/18. Patient reports improvement after starting medications and reports her family has told her she has improved. Objective: Vital Signs Temp Pulse Resp BP Pulse Ox 36.7 C 92 15 120/55 L 97 05/05/18 06:00 05/05/18 06:00 05/05/18 06:00 05/05/18 06:00 05/05/18 06:00 NURSING REPORT: Consulted with nursing for update on patients progress in treatment. Nurses report patient is engaged in treatment, is attending groups, slept 9 hours and slept throughout the night, expresses the following psychiatric symptoms: anxious; exhibits the following psychiatric symptoms: improved, less distractible, latency of response to questions as improved; patients nourishment and fluid intake have improved; patient continues to require some direction and prompting from staff to attend to ADLs; has been agreeable to medications and taking as prescribed with no report of side effects , with no s/s of EPS/akathisia, and denies SI/HI, denies A/V hallucinations, and denies delusions. MSE: The patient is a well-nourished female looking stated chronological age. Attire is appropriate and dress is hospital garb. Grooming status is appropriate. Ambulation is independent. Gait is normal and coordinated. Posture is normal and relaxed. Eye contact is appropriate. Motor activity is appropriate with purposeful, organized, coordinated movements; with no involuntary movements. Attitude is cooperative and friendly. Patient is attentive and relates well to this interviewer. Language production is spontaneous. Rate is hesitant. Latency of response is prolonged with low volume, and amount is appropriate. Articulation is clear. Patient reports mood as okay with incongruent and flat, constricted affect. Patients thought process is linear and logical, and thought process has improved. Patient does not report suicidal/homicidal thoughts, ideas, or plans. Patient denies auditory hallucinations, denies visual hallucinations. Patient denies delusions. Patient does not appear to be attending to internal stimuli during interview. Patients attention and concentration are improved. Patient is oriented to person, place, time. Patients insight and judgement are improved. - Time Spent With Patient Time Spent With Patient: 15 minutes, met with patient individually. - Pending Discharge Pending Discharge Within 24 Hours: No Pending Discharge Within 48 Hours: No ICD10 Worksheet Patient Problems: Problems Problem Status Onset Acute psychosis Acute Gwendolyn Acute Bipolar I disorder with mood-congruent psychotic features Chronic
[2018-05-05] MEDS ORDERED: LITHIUM CARBONATE ER 300 MG TAB PO SCH ×2 (09:00→21:00)
[2018-05-05] MEDS ORDERED: ARIPIPRAZOLE (ABILIFY MAINTENA) 400 MG VIAL IM ONE (09:00)
[2018-05-05] MEDS: ARIPiprazole 5 MG TAB PO SCH (09:09)
[2018-05-05] MEDS: LITHIUM CARBONATE ER 300 MG TAB PO SCH (20:12)
--- NOTE | 2018-05-06 07:24 | SOAPPROG ---
SOAP Progress Note Assessment/Plan: Assessment: Bipolar I Disorder, Severe, With Mood Congruent Psychotic Features. Slight improvement noted; notably improved sleep and thought process (see subjective/ objective note). Patient is not safe to discharge at this time as patient continues to exhibit signs of psychosis. Patient requires continued inpatient care because of current psychosis, and requires inpatient level of care to stabilize in order to no longer be gravely disabled due to mental illness. Patient is unable to communicate her basic needs and unable to perform ADLs without direction and prompting from staff. Patient exhibits inability to provide for herself, neglecting self-care, currently shows inability to maintain any appropriate aspect of personal responsibility as an adult, and patient in need of improved support system for ongoing treatment after discharge. Patient to be discharged home to mother, and prior to this hospitalization patients mother has been against medical treatment, patient has stopped treatment in the past, decompensated leading to rehospitalization. Patient's brother has been supportive of treatment. Family meeting planned with patients mother and brother today at 0900 to review treatment plan and provide education to patients mother on importance of continuing treatment after hospitalization. Family meeting planned for Friday at 1400 prior to pending discharge with patient, patients mother, brother, case reviewer, [facility] liaison, [facility] protective child and family services worker, and this ALL AROUND GEAR MACHINE OPERATOR to review treatment and discharge plan. Patient could benefit from continued inpatient hospitalization for crisis stabilization, safety, and medication evaluation. Patient could benefit from therapeutic lithium level prior to discharge. Patient attempted to jump from a moving care prior to hospitalization and in addition to being gravely disabled has demonstrated potential for risk to herself when her condition is not managed appropriately with medications. [place] level increased today as level Friday was 0.4 and sub therapeutic. Plan: 1. Psychotropic medications: After reviewing options, risks, and benefits patient agrees to continue current medications. No medication changes at this time as more time is needed to determine ongoing tolerability and efficacy. Plan is to continue to observe patient for response and side effects from medications, and ongoing monitoring and evaluation. 2. Review with patient informed consent and recommendations for psychotropic medication treatment listed below including current medications and Abilify Maintena 400 mg IM [id number] administered yesterday. 3. Labs: lithium level 0.4 yesterday, increase dose with follow-up lab on . 4. Therapy: continue milieu and group therapy 5. Further investigation including gathering information from patients relatives and review of past case records to inform treatment plan. 6. Safety/Wellness plan and follow-up outpatient appointments to be established prior to discharge. Next steps are for patient to meet with hearing healthcare practitioner to plan a safe discharge plan and establish outpatient services for ongoing treatment. 7. Confer with inpatient treatment team regarding treatment plan. 8. Psychosocial stressors addressed through case management. 9. Legal status: [facility] and [facility] 10. Consider discharge Friday if patient is in stable condition, safe, and has a safe discharge plan. PSYCHOTROPIC MEDICATION TREATMENT INFORMED CONSENT and RECOMMENDATIONS: Review nature of condition, diagnosis, and prognosis. Review nature and purpose of psychotropic medication treatment. Review type of psychotropic medications being ordered. Review risk and benefits of psychotropic medication treatment. Review probable length of time patient will need to take medications. Review risk and benefits of not undergoing psychotropic medication treatment. Review alternative treatments to psychotropic medications. Review psychotropic medications contraindications, drug-drug interactions, side effects, and importance of reporting any side effects to a psychiatric provider or nurse during inpatient hospitalization, and upon discharge to patients psychiatric outpatient provider, primary care provider, or other health child care specialist. Review importance of asking a nurse, psychiatric provider, or primary care provider any questions or problems concerning the psychotropic medications. Verify patient understands the information that has been provided, and understands, accepts, and agrees to psychotropic medications. Review patients safety plan and importance of patient to report to staff while hospitalized if patient is ever a danger to self/others, or unable to care for self, and upon discharge, the importance for patient to contact [facility] or [facility], or go to the nearest emergency room, if patient is ever a danger to self/others, or unable to care for self. Recommend that upon discharge patient establish medication management treatment with a psychiatric provider, establishes routine therapy appointments, and follow-up with primary care provider. Verify patient understands and agrees to these recommendations. 05/06/18 07:27 Subjective: Following up with patient for evaluation of psychosis, gwendolyn, and safety. Patient reports, "Feeling better, looking forward to seeing my mom today." Patient expresses the following psychiatric symptoms "anxious, ready to leave here." Patient reports taking medications as prescribed, and describes response to medications as good. Patient does not report undesirable side effects from the medications, and agrees to continue current medications. Patient describes getting 8 hours of sleep, and reports she feels rested today. Objective: Vital Signs Temp Pulse Resp BP Pulse Ox 36.7 C 78 15 122/62 H 99 05/06/18 06:00 05/06/18 06:00 05/06/18 06:00 05/06/18 06:00 05/06/18 06:00 NURSING REPORT: Consulted with nursing for update on patients progress in treatment. Nurses report patient is engaged in treatment, is attending groups, slept 8 hours and slept throughout the night, expresses the following psychiatric symptoms: anxious; exhibits the following psychiatric symptoms: improved, less distractible, thought blocking at times, latency of response to questions continues to improve; patients nourishment and fluid intake have improved; patient continues to require some direction and prompting from staff to attend to ADLs, is agreeable to medications and taking as prescribed with no report of side effects, with no s/s of EPS/akathisia, and denies SI/HI, denies A /V hallucinations, and denies delusions. FAMILY MEETING: today at 0900 with patient, patient's mother and brother and on Friday at 1400 with patient, MOC, BOC, CC, ALL AROUND GEAR MACHINE OPERATOR, MHP, and [place] adult protective child and family services worker. MSE: The patient is a well-nourished female looking stated chronological age. Attire is appropriate and dress is hospital garb. Grooming status is appropriate. Ambulation is independent. Gait is normal and coordinated. Posture is normal and relaxed. Eye contact is appropriate. Motor activity is appropriate with purposeful, organized, coordinated movements; with no involuntary movements. Attitude is cooperative and friendly. Patient is attentive and relates well to this interviewer. Language production is spontaneous. Rate is hesitant. Latency of response is prolonged with low volume, and amount is appropriate. Articulation is clear. Patient reports mood as okay with incongruent and flat, constricted affect. Patients thought process is linear and logical, and thought process has improved. Patient does not report suicidal/homicidal thoughts, ideas, or plans. Patient denies auditory hallucinations, denies visual hallucinations. Patient denies delusions. Patient does not appear to be attending to internal stimuli during interview. Patients attention and concentration are improved. Patient is oriented to person, place, time. Patients insight and judgement are improving. - Time Spent With Patient Time Spent With Patient: 15 minutes, met with patient individually. - Pending Discharge Pending Discharge Within 24 Hours: No Pending Discharge Within 48 Hours: Yes Pending Discharge Date: 05/08/18 Pending Discharge Time: 11:00 ICD10 Worksheet Patient Problems: Problems Problem Status Onset Acute psychosis Acute Gwendolyn Acute Bipolar I disorder with mood-congruent psychotic features Chronic
[2018-05-06] MEDS: ARIPiprazole 5 MG TAB PO SCH (09:03)
--- NOTE | 2018-05-06 12:43 | ASMTBHFAM ---
Notes Note: Notes: Client participated in treatment team meeting today. Additionally, client participated in family meeting with provider, CC and mother. Meeting overall went well, MOC seemed to be genuine in her affect and motivations regarding best practices for client (cont. to take medications and establish with MHP), etc. Next, family meeting is scheduled for Friday at 2pm. Date Signed: 05/06/2018 12:42 PM Electronically Signed By:Douglas Wiley
[2018-05-06] MEDS: LITHIUM CARBONATE ER 300 MG TAB PO SCH (21:37)
--- NOTE | 2018-05-07 07:02 | SOAPPROG ---
SOAP Progress Note Assessment/Plan: Assessment: Schizoaffective Disorder, Bipolar Type. R/O Bipolar with mood congruent psychotic features. Upon admission signs of gwendolyn were noted, patient no longer exhibited signs of gwendolyn for over a week; however, psychosis symptoms have continued, notably thought blocking, diminished emotional expression. Slight improvement noted; notably improved sleep and thought process (see subjective/objective note). Patient likely discharge tomorrow if patient continues to improve, family reports patient is near her baseline and patient has improved considerably since time of admission. Family meeting planned for Friday at 1400 prior to pending discharge with patient, patients mother, brother , case advocate, [facility] liaison, [facility] rehabilitation services aide, and this REGION MANAGER to review treatment and discharge plan. Patient could benefit from continued inpatient hospitalization for crisis stabilization , safety, and medication evaluation. Patient could benefit from therapeutic lithium level prior to discharge, lithium level tomorrow AM. Plan: 1. Psychotropic medications: After reviewing options, risks, and benefits patient agrees to continue current medications. No medication changes at this time as more time is needed to determine ongoing tolerability and efficacy. Plan is to continue to observe patient for response and side effects from medications, and ongoing monitoring and evaluation. Consider increasing lithium ER dose as indicated by lithium level to be drawn tomorrow AM. 2. Review with patient informed consent and recommendations for psychotropic medication treatment listed below 3. Labs: lithium level 0.4 yesterday, increased dose with follow-up lab on 05/08. 4. Therapy: continue milieu and group therapy 5. Further investigation including gathering information from patients relatives and review of past case records to inform treatment plan. 6. Safety/Wellness plan and follow-up outpatient appointments to be established prior to discharge. Next steps are for patient to meet with medical care administrator to plan a safe discharge plan and establish outpatient services for ongoing treatment. 7. Confer with inpatient treatment team regarding treatment plan. 8. Psychosocial stressors addressed through case management. 9. Legal status: [facility] and [facility] 10. Consider discharge Friday if patient is in stable condition, safe, and has a safe discharge plan. PSYCHOTROPIC MEDICATION TREATMENT INFORMED CONSENT and RECOMMENDATIONS: Review nature of condition, diagnosis, and prognosis. Review nature and purpose of psychotropic medication treatment. Review type of psychotropic medications being ordered. Review risk and benefits of psychotropic medication treatment. Review probable length of time patient will need to take medications. Review risk and benefits of not undergoing psychotropic medication treatment. Review alternative treatments to psychotropic medications. Review psychotropic medications contraindications, drug-drug interactions, side effects, and importance of reporting any side effects to a psychiatric provider or nurse during inpatient hospitalization, and upon discharge to patients psychiatric outpatient provider, primary care provider, or other health care mgr. Review importance of asking a nurse, psychiatric provider, or primary care provider any questions or problems concerning the psychotropic medications. Verify patient understands the information that has been provided, and understands, accepts, and agrees to psychotropic medications. Review patients safety plan and importance of patient to report to staff while hospitalized if patient is ever a danger to self/others, or unable to care for self, and upon discharge, the importance for patient to contact [facility] or [facility], or go to the nearest emergency room, if patient is ever a danger to self/others, or unable to care for self. Recommend that upon discharge patient establish medication management treatment with a psychiatric provider, establishes routine therapy appointments, and follow-up with primary care provider. Verify patient understands and agrees to these recommendations. 05/07/18 07:02 Subjective: Following up with patient for evaluation of psychosis, gwendolyn, and safety. Patient reports, "Feeling so much better, and ready to go home." Patient expresses the following psychiatric symptoms "anxious, so ready to leave." Patient reports taking medications as prescribed, and describes response to medications as good. Patient does not report undesirable side effects from the medications, and agrees to continue current medications. Patient describes getting 8 hours of sleep, and reports she feels rested today. Objective: Vital Signs Temp Pulse Resp BP Pulse Ox 36.9 C 99 16 122/56 H 97 05/07/18 06:00 05/07/18 06:00 05/07/18 06:00 05/07/18 06:00 05/07/18 06:00 - Time Spent With Patient Time Spent With Patient: 15 minutes, met with patient individually. - Pending Discharge Pending Discharge Within 24 Hours: Yes Pending Discharge Within 48 Hours: No Pending Discharge Date: 05/08/18 Pending Discharge Time: 11:00 ICD10 Worksheet Patient Problems: Problems Problem Status Onset Acute psychosis Acute Gwendolyn Acute Bipolar I disorder with mood-congruent psychotic features Chronic
[2018-05-07] MEDS: ARIPiprazole 5 MG TAB PO SCH (08:24)
[2018-05-07] MEDS: LITHIUM CARBONATE ER 300 MG TAB PO SCH (18:05)
[2018-05-08 06:37] VITALS: BP 119/68
[2018-05-08] MEDS: ARIPiprazole 5 MG TAB PO SCH (08:10)
--- NOTE | 2018-05-08 10:39 | ASMTCMCOM ---
CM Note CM Note Notes: Pt. reports feeling "okay". Pt. stated she slept "not the greatest". Pt. stated she is aware of the family meeting, but was not sure who all would be there. Pt. stated she has "been here for a long time". Pt. denied SI, HI, AVH and paranoia. Pt. presents as alert, calm, a bit suspicious good eye contact, and cooperative. Staff report pt. sleeping 8 hours and being medication compliant. Date Signed: 05/08/2018 10:39 AM Electronically Signed By:Keyanna Hatfield
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
== END 2018-05-08 15:03 | disposition home or self-care (01) | DRG 885 ==
LOC: BBEH 04-18 19:00 → OBSVTOIN 04-18 20:41 → BBEH 04-21 13:24
PROVIDERS: ADMIT Psychiatry & Neurology Psychiatry; ATTEND Registered Nurse
DX: F25.0 Schizoaffective disorder, bipolar type (principal)
CPT/HCPCS: 80305; G0480; J0401; J1630; J2060